=== PATIENT | female | born 1980 | race Caucasian/White ===

== ENCOUNTER 2017-08-19 11:32 | Inpatient (IN) ==
--- OUTSIDE RECORDS SUMMARY | 2017-08-29 05:31 | External Medical Summary | Continuity of Care Document ---
:1980 Author Organization [facility] Address [address] [place], [place] [id number] Phone Support Name Relationship Address Phone Glenn Dailey spouse [address] [phone] [place] [address] Allergies, Adverse Reactions, Alerts Substance Reaction Severity Status No Known Drug Allergies Unknown Active Medications Medication Instructions Dosage Effective Dates Status Comments (start - stop) Tylenol Extra take 2 tablet by 1000 MG - Active Strength 500 mg oral route every 6 tablet hours as needed ranitidine 150 mg take 1 tablet by 150 MG - Active tablet ORAL route every day Plus take 1 tablet by Not Available - Active (calcium oral route every carbonate) 27 mg day iron-1 mg tablet ferrous sulfate take 1 tablet by 325 MG - Active 325 mg (65 mg ORAL route every iron) tablet day Problems Condition Effective Dates (start - stop) Clinical Status Previous Low Transverse - 29 weeks gestation of - Nicotine dependence, cigarettes, uncomplicated Hirsutism 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 Supervision of elderly multigravida, - first trimester Previous Low Transverse - Encntr screen for infections w sexl - mode of transmiss Encounter for screening for oth - infec/parastc diseases Encounter for screening of - mother 9 weeks gestation of - Encounter for suprvsn of normal - , first trimester Morbid (severe) obesity due to excess calories Nicotine dependence, cigarettes, uncomplicated Hirsutism Encounter for removal of intrauterine - contraceptive device Encounter for oth general cnsl and advice on procreation 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 Body mass index (BMI) 40.0-44.9, adult Morbid (severe) obesity due to excess - calories Supervision of elderly multigravida, - first trimester 13 weeks gestation of - Supervision of elderly multigravida, - second trimester Previous Low Transverse - 17 weeks gestation of - Obesity complicating , second - trimester Previous Low Transverse - Supervision of elderly multigravida, - second trimester 19 weeks gestation of - Supervision of elderly multigravida, - second trimester 23 weeks gestation of - Previous Low Transverse - Supervision of elderly multigravida, - second trimester 26 weeks gestation of - Matern care for oth or susp poor fetl - grth, third tri, unsp Supervision of elderly multigravida, - third trimester 29 weeks gestation of - Matern care for oth or susp poor fetl - [facility], third tri, unsp 31 weeks gestation of - Encounter for screening for lipoid - disorders Encounter for screening for oth - suspected endocrine disorder Other senior living (current) drug therapy 19 weeks gestation of - Encounter for suprvsn of normal - , second trimester IUD Surveillance - Active Procedures Procedure Date OB Visit No Charge Results Test Name Date and Time Measure Units Reference Range Abnormal Flag Comments Unknown Advance Directives Directive Yes / No Effective Date File Name Unknown Encounters Encounter Practice Location Reason(s) Diagnoses Date Provider Care Team Description For Visit Members Bere Yepez Matern care for Vizcaino Referring In Womens oth or susp poor 1-201 Patricia. Provider: Health PA, fetl gr, third 7 700 Patriciainder Reyesb [address] tri, unsp31 weeks Medical K, 700 1522, gestation of [facility] Tina, , [facility] [address] MURRAY, 120, Taran 120, [id number], [place], [place], [place], tel: [phone]. , [place]. tel: tel: [phone] Bere Yepez Previous Low Sep-0 Vizcaino Referring In Womens Transverse - Patricia. Provider: Elier BACK, [id number] weeks 7 700 Patricia Vizcaino PO Box gestation of [facility], 700 1522, [facility] Dr Tina, [facility] Dr MURRAY, 120, Taran 120, , [place], [place], tel: [phone]. , [place]. tel: tel: [phone] Bere Yepez Matern care for Sep-0 Vizcaino Referring In Womens Ultrasound oth or susp poor - Patricia. Provider: Elier BACK, fetl grth, third 7 700 Patricia Vizcaino PO Box tri, [facility], 700 1522, unspSupervision [facility], of elderly , [facility] Dr MURRAY, multigravida, 120, Taran 120, [id number], third [id number] [place], [place] weeks gestation [place], [place], tel: of [phone]. , [place]. tel: tel: [phone] Bere Yepez Aug-1 Vizcaino In Womens 7- Patricia. Elier BACK, 7 700 [address], [address] Tina, [facility] T[place], 120, [id number], [place], [place], tel: [phone] , [place]. tel: [phone] Bere Yepez Previous Low Aug-1 Vizcaino Referring In Womens Transverse 6- Patricia. Provider: Elier BACK, C-SectionSupervis 7 700 Patricia Vizcaino PO Box ion of elderly [facility], 700 1522, multigravida, Shorter Adiel Wilder, second , [facility] Dr MURRAY, [id number] weeks 120, Taran 120, , gestation of [place], [place], [place], tel:[phone]. , [place]. tel: tel: [phone] Bere Yepez Supervision of Apr- Vizcaino Referring In Womens elderly 6-201 Patricia. Provider: Elier BACK, multigravida, 7 700 Patricia Vizcaino PO Box second [facility], 700 1522, [id number] [facility] of Dr, [facility] Dr MURRAY, 120, Taran 120, , [place], [place], [place], tel:[phone]. , [place]. tel: tel: [phone] Bere Yepez 19 weeks Mar- Vizcaino Referring In Womens gestation of 8-201 Patricia. Provider: Elier BACK, pregnancyEncounte 7 700 Patricia Vizcaino PO Box r for suprvsn of [facility], 700 1522, normal , [facility], second trimester Dr, [facility] Dr MURRAY, 120, Taran 120, , [place], [place], [place], tel:[phone]. , [place]. tel: tel: [phone] Bere Yepez Obesity Mar- Vizcaino Referring In Womens Ultrasound complicating 8-201 Patricia. Provider: Elier BACK, , second 7 700 Patricia Vizcaino PO Box trimesterPrevious Medical , 700 1522, Low Transverse [facility], C-SectionSupervis , [facility] Dr MURRAY, ion of elderly 120, Taran 120, , multigravida, [place], [place] second [place] MURRAY, tel: [id number] weeks [phone]. gestation of , [place]. tel: tel: [phone] Bere Yepez Supervision of Mar- Vizcaino Referring In Womens elderly 3-201 Patricia. Provider: Elier BACK, multigravida, 7 700 Patricia Vizcaino PO Box second [facility], 700 1522, trimesterPrevious [facility] Low Transverse Dr, [facility] Dr MURRAY, [id number] weeks 120, Taran 120, [id number], gestation of [place], [place] MURRAY, tel: [phone]. , [place]. tel: tel: [phone] Bere Yepez Morbid (severe) February- Vizcaino Referring In Womens obesity due to 6-201 Patricia. Provider: Elier BACK, excess 7 700 Patricia Vizcaino PO Box caloriesSupervisi [facility], 700 1522, on of elderly [facility], multigravida, , [facility] Dr MURRAY, first [id number] 120, Taran 120, , weeks gestation [place]o [place], [place] of [place] MURRAY, tel: [phone]. , [place]. tel: tel: [phone] [facility] Supervision of Jan-2 Vizcaino Referring In Womens elderly 0-201 Patricia. Provider: Elier BACK, jessicagravida, 7 700 Patricia Vizcaino PO Box [facility], 700 1522, trimesterPrevious [facility], Low Transverse , [facility] Dr MURRAY, C-SectionEncntr 120, Taran 120, , screen for [place], [place] infections w sexl [place] MURRAY, tel: mode of [phone]. [facility] [place]. tel: r for screening tel: [phone] for oth [phone] infec/parastc diseasesEncounter for screening of mother9 weeks gestation of pregnancyEnc[facility] r for suprvsn of normal , first trimester [facility] Encounter for Mar-0 Vizcaino Referring In Womens screening for 9-201 Patricia. Provider: Elier BACK, lipoid 7 700 Patricia Vizcaino PO Box [facility], r for screening [facility], for oth suspected , [facility] Dr MURRAY, endocrine 120, Taran 120, , disorderOther [place], [place] [employer] [place] MURRAY, tel: (current) drug [phone]. therapy , [place]. tel: tel: [phone] [facility] Nicotine Nov- Vizcaino Referring In Womens dependence, Patricia. Provider: Elier BACK, lonnie, 7 700 Patricia Vizcaino PO Box uncomplicatedHirs Medical K, 700 1522, utismEncntr for [facility], infection control coordinator exam , [facility] Center Dr MURRAY, (general) 120, Taran 120, , (routine) w [place], abnormal findings [place], tel: [phone]. , [place]. tel: tel: [phone] [facility] Morbid (severe) Vizcaino Referring In Womens obesity due to Patricia. Provider: Elier BACK, excess 5 700 Patricia Vizcaino PO Box caloriesNicotine Medical K, 700 1522, dependence, Center Medical Tina, lonnie, , [facility] Center Dr MURRAY, uncomplicatedHisendy 120, Taran 120, , utismEncounter [place]o [place], for removal of [place], [place], tel: intrauterine [phone]. contraceptive , [place]. tel: deviceEncounter tel: [phone] for oth general [phone] cnsl and advice on procreation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Body mass index (BMI) 40.0-44.9, adult [facility] Vizcaino In Womens Patricia. Health PA, 3 700 [address] Medical [address], [address] Tina, Taran [place], 120, , [place], [place], tel: [phone] , [place]. tel: [phone] Family History Family Member Diagnosis Age At Onset No family history of Kidney Problems Paternal Grandmother Diabetes mellitus Maternal Grandmother Cardiovascular Disease No family history of Epilepsy No family history of Osteoporosis Sister Diabetes mellitus No family history of Uterine Cancer No family history of Hypertension No family history of Ovarian Cancer Maternal Grandmother Stroke Father Diabetes mellitus No family history of Lung Disease Maternal Grandmother Cancer, colon 70 No family history of Thyroid Disorder No family history of Breast Cancer Immunizations Vaccine Date Status Comments Tdap completed Source: New Immunization Record Payers Payer name Insurance type Covered democrat ID Authorization(s) BCBS [facility] [id number] [employer] [place] [employer] - Medicaid MC [id number] [facility] [id number] Medicaid BCBS Out Of State [id number] BCBS [facility] [id number] [employer] [place] [employer] - Medicaid MC [id number] Social History Type Description Quantity Date Captured Alcohol Use Details No Caffeine Use Details Unknown Tobacco Use Status Smoking Status Current every day smoker Vital Signs Date / Height Weight BMI Pulse Blood Temperature Respiratory Body Head BMI Time: Rate Pressure Rate Surface Circumference percentile Area 289.90 42.1 -2016 lbs 9 9:40 kg/m AM eter (2) 289.90 42.1 124/73 -2017 lbs 9 mm[Hg] 9:41 kg/m AM eter (2) Chief Complaint And Reason For Visit Unknown Chief Complaint And Reason For Visit Reason For Referral Reason For Referral Unknown Plan Of Care Date Type Action Status Goal Tobacco cessation counseling completed Goal Tobacco cessation counseling completed Goal Tobacco cessation counseling completed Appointment Heidi Dailey BOOKED Appointment Heidi Dailey BOOKED Appointment Heiid Dailey - [facility] - RC/S, PPTL BOOKED Future Order: Lab Order Pap Smear With HPV Reflex If Ordered ASCUS ([id number]) Future Order: Radiology Order OB Detailed Complete Ultrasound Ordered ([id number]) Future Order: Radiology Order Ultrasound OB Follow-up ([id number]) Ordered Date Type Problem Goal Intervention Status Start Date Unknown. History Of Present Illness Encounter Date Complaint History Of Present Illness This patient has no known history of present illness Functional Status Encounter Date Functional Assessment Cognitive Assessment Unknown Medications Administered Medication Instructions Dosage Effective Dates (start - stop) Status Comments Drug Treatment Unknown Instructions Date Instruction Additional Information family planning / tubal sterilization gestational glucose lab screening HIV and other routine tests risk factors identified by history anticipated course of care nutrition and weight gain counseling, special diet toxoplasmosis precautions (cats / raw meat) sexual activity exercise indications for ultrasound influenza vaccine environmental / work hazards travel tobacco (ask, advise, assess, assist and arrange) use of any medications (including supplements, vitamins, herbs, OTC drugs) smoking counseling domestic violence seat belt use childbirth classes / hospital facilities hospital registration genetic testing risks Zika virus assessment & precautions
--- OUTSIDE RECORDS SUMMARY | 2017-08-29 05:32 | External Medical Summary | Continuity of Care Document ---
:1980 Author Organization [facility] Address [address] [place], [place] [id number] Phone Support Name Relationship Address Phone Glenn Dailey spouse [address] [phone] [place] [address] Allergies, Adverse Reactions, Alerts Substance Reaction Severity Status No Known Drug Allergies Unknown Active Medications Medication Instructions Dosage Effective Dates Status Comments (start - stop) Tylenol Extra take 2 tablet by 1000 MG - Active Strength 500 mg oral route every 6 tablet hours as needed ranitidine 150 mg take 1 tablet by 150 MG - Active tablet ORAL route every day FISH OIL 500-100 - Active mg ORAL CAPSULE Plus take 1 tablet by Not Available - Active (calcium oral route every carbonate) 27 mg day iron-1 mg tablet Problems Condition Effective Dates (start - stop) Clinical Status Supervision of elderly multigravida, - second trimester 23 weeks gestation of - Nicotine dependence, cigarettes, uncomplicated Hirsutism 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 Supervision of elderly multigravida, - first trimester Previous Low Transverse - Encntr screen for infections w sexl - mode of transmiss Encounter for screening for oth - infec/parastc diseases Encounter for suprvsn of normal - , first trimester Encounter for screening of - mother 9 weeks gestation of - Morbid (severe) obesity due to excess calories Nicotine dependence, cigarettes, uncomplicated Hirsutism 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 Encounter for removal of intrauterine - contraceptive device Encounter for oth general cnsl and advice on procreation Body mass index (BMI) 40.0-44.9, adult Morbid (severe) obesity due to excess - calories Supervision of elderly multigravida, - first trimester 13 weeks gestation of - Supervision of elderly multigravida, - second trimester Previous Low Transverse - 17 weeks gestation of - Supervision of elderly multigravida, - second trimester Previous Low Transverse - Obesity complicating , second - trimester 19 weeks gestation of - Encounter for screening for lipoid - disorders Other correction (current) drug therapy Encounter for screening for oth - suspected endocrine disorder 19 weeks gestation of - Encounter for [...] Team Description For Visit Members Bere Yepez Supervision of Vizcaino Referring In Womens elderly 6-201 Patricia. Provider: kamala Guillermoavineeraj, 7 700 Patricia Vizcaino PO Box second Medical , 700 1522, [id number] weeks [place] Adiel Wilder, gestation of Dr, [facility] Dr MURRAY, 120, Taran 120, , [place] Ye[place], [facility] [place], tel: [phone] , [place]. tel: tel: [phone] Bere Yepez 19 weeks Vizcaino Referring In Womens gestation of 8-201 Patricia. Provider: Elier BACK pregnancyEncounte 7 700 Patricia Vizcaino PO Box r for suprvsn of Medical K, 700 1522, normal , Hamilton Adiel Wilder, second trimester , [facility] Dr MURRAY, 120, Taran 120, [id number], [place], [place] MURRAY, tel: [phone]. , [place]. tel: tel: [phone] Bere Yepez Supervision of [place]-2 Vizcaino Referring In Womens Ultrasound elderly 8-201 Patricia. Provider: Elier BACK, jessicagravineeraj, 7 700 Patricia Vizcaino PO Box [facility], 700 1522, trimesterPrevious [facility] Tina Low Transverse , [facility] Dr MURRAY, C-SectionObesity 120, Taran 120, [id number], complicating [place], [place] , second [place] MURRAY, tel: weeks [phone]. gestation of , [place]. tel: tel: [phone] Bere Yepez Supervision of [place]-1 Vizcaino Referring In Womens elderly 3-201 Patricia. Provider: jessica Guillermogravineeraj, 7 700 Patricia Vizcaino PO Box [facility] [place], 700 1522, trimesterPrevious [facility] [place], Low Transverse , [facility] Dr MURRAY, [id number] weeks 120, Taran 120, , gestation of [place], [place], tel: [phone]. , [place]. tel: tel: [phone] Bere Yepez Morbid (severe) May- Vizcaino Referring In Womens obesity due to 6-201 Patricia. Provider: Elier BACK, excess 7 700 Patricia Vizcaino PO Box [facility], 700 1522, [facility]i, , [facility] Dr MURRAY, first [id number] 120, Taran 120, [id number], weeks gestation [place]o [place], [place] of [place], tel: [phone]. , [place]. tel: tel: [phone] Bere Yepez Supervision of Apr-2 Vizcaino Referring In Womens elderly 0-201 Patricia. Provider: jessica Guillermogravineeraj, 7 700 Patricia Vizcaino PO Box [facility], 700 1522, trimesterPrevious [facility], Low Transverse , [facility] Dr MURRAY, C-SectionEncntr 120, Taran 120, , screen for [place], [place] infections w sexl [place] MURRAY, tel: mode of [phone]. transmissEncounte , [place]. tel: r for screening tel: [phone] for oth [phone] infec/parastc diseasesEncounter for suprvsn of normal , first trimesterEncounte r for screening of mother9 weeks gestation of [facility] Encounter for Dec-0 Vizcaino Referring In Womens screening for 9-201 Patricia. Provider: Health PA, lipoid Patricia Vizcaino PO Box disordersOther [facility], 152, buttermaker helper [facility], (current) drug , [facility] Dr MURRAY, therapyEncounter 120, Taran 120, , for screening for [place] Ye[place], [place] oth suspected [place] MURRAY, tel: endocrine [phone]. disorder , [place]. tel: tel: [phone] Bere Yepez Nicotine Nov- Vizcaino Referring In Womens dependence, - Patricia. Provider: Health NAZANIN, cigarettes, Patricia Vizcaino PO Box [facility]plicated[facility]irs [facility], 700 152, utismEncntr for [facility], gynecological assistant exam , [facility] Dr MURRAY, (general) 120, Taran 120, , (routine) w [place], [place] abnormal findings [place] MURRAY, tel: [phone]. , [place]. tel: tel: [phone] Bere Yepez Morbid (severe) Sep- Vizcaino Referring In Womens obesity due to 5-201 Patricia. Provider: Health NAZANIN, excess Patricia Vizcaino PO Box caloriesNicotine [facility], 700 1522, dependence, [facility], cigarettes, , [facility] Dr MURRAY, uncomplicatedHirs 120, Taran 120, , utismEncntr for [place], [place] gynecological assistant exam [place], tel: (general) [phone]. (routine) w , [place]. tel: abnormal tel: [phone] findingsEncounter [phone] for removal of intrauterine contraceptive deviceEncounter for oth general cnsl and advice on procreationBody mass index (BMI) 40.0-44.9, adult [facility] Vizcaino In Womens 8-201 [facility], 3 700 PO [place] [facility] [address], [address] Tina, [facility], 120, [id number], [facility] [place], tel: [phone] , [place]. tel: [phone] Family History Family Member Diagnosis Age At [...] Breast Cancer Immunizations Vaccine Date Status Comments Unknown Payers Payer name Insurance type Covered libertarian ID Authorization(s) [facility] [id number] [facility] [id number] Medicaid BCBS [facility] [id number] Social History Type Description Quantity Date Captured Alcohol Use Details No Caffeine Use Details Unknown Tobacco Use Status Smoking Status Current every day smoker Vital Signs Date / Height Weight BMI Pulse Blood Temperature Respiratory Body Head BMI Time: Rate Pressure Rate Surface Circumference percentile Area 291.30 42.4 136/ lbs 0 mm[Hg] 1:16 kg/m PM eter (2) Chief Complaint And Reason For Visit Unknown Chief Complaint And Reason For Visit Reason For Referral Reason For Referral Unknown Plan Of Care Date Type Action Status Goal Tobacco cessation counseling completed Goal Tobacco cessation counseling completed Goal Tobacco cessation counseling completed Appointment Heidi Dailey KEPT Future Order: Lab Order Pap Smear With HPV Reflex If Ordered ASCUS ([id number]) Future Order: Radiology Order OB Detailed Complete Ultrasound Ordered ([id number]) Date Type Problem Goal Intervention Status Start Date Unknown. History Of Present Illness Encounter Date Complaint History Of Present Illness This patient has no known history of present illness Functional Status Encounter Date Functional Assessment Cognitive Assessment Unknown Medications Administered Medication Instructions Dosage Effective Dates (start - stop) Status Comments Drug Treatment Unknown Instructions Date Instruction Additional Information HIV and other routine tests risk factors [...]
--- OUTSIDE RECORDS SUMMARY | 2017-08-29 05:32 | External Medical Summary | Continuity of Care Document ---
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 Supervision of elderly multigravida, - first trimester Previous Low Transverse - Encntr screen for infections w sexl - mode of transmiss Encounter for screening for oth - infec/parastc diseases Encounter for suprvsn of normal - , first trimester Encounter for screening of - mother 9 weeks gestation of - Morbid (severe) obesity due to excess - calories Supervision of elderly multigravida, - third trimester Previous Low Transverse - 33 weeks gestation of - Morbid (severe) obesity due to excess calories Nicotine dependence, cigarettes, uncomplicated Hirsutism 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 Encounter [...] - second trimester Previous Low Transverse - 26 weeks gestation of - Supervision of elderly multigravida, - second trimester Previous Low Transverse - Obesity complicating , second - trimester 19 weeks gestation of - Supervision of elderly multigravida, - second trimester 23 weeks gestation of - Supervision of elderly multigravida, - third trimester Previous Low Transverse - Encounter For Screening For - Streptococcus B 35 weeks gestation of - Supervision of elderly multigravida, - third trimester Matern care for oth or susp poor fetl - grth, third tri, unsp 29 weeks gestation of - Previous Low Transverse - 29 weeks gestation of - Matern care for oth or susp poor fetl - grth, third tri, unsp 31 weeks gestation of - Encounter for screening for lipoid - disorders Encounter for screening for oth - suspected endocrine disorder 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 Provider: falguni Guillermo, 7 700 Patricia Vizcaino PO Box [facility], 700 1522, [facility] [place] [facility] [place]verse , [facility] Dr MURRAY, C-SectionEncounte 120, Tar[place] 120, [id number], r For [place], Screening [place], tel:2 Streptococcus B35 [id number]. 517608 weeks gestation , [place]. tel: of tel: [phone] Bere Yepez Morbid (severe) Oct-0 Vizcaino Referring In Womens obesity due to Patricia. Provider: lu Guillermo 7 700 Patricia Vizcaino PO Box [facility], 700 1522, on of [facility] falguni Wilder, , [facility] Dr MURRAY, third 120, [place] 120, [id number], trimesterPrevious [place], [place], tel: [id number] weeks [id number]. [id number] gestation of , [place]. tel: tel: [phone] Bere Yepez Supervision of Jul-0 Vizcaino Referring In Womens Ultrasound elderly - Patricia. Provider: falguni Guillermo, 7 700 Patricia Vizcaino PO Box [facility], 700 1522, [facility] Munir Palafox Transverse , [facility] Dr MURRAY, C-SectionMatern 120, Taran 120, [id number], care for oth or Lucho Yepez, susp poor fetl TREVOR MURRAY, tel: grth, third tri, [phone] [id number]. unsp33 weeks , [place]. tel: gestation of tel:[phone] Bere Yepez Matern care for Sep-2 Vizcaino Referring In Womens oth or susp poor - Patricia. Provider: Elier BACK, fetl grth, third 7 700 Patricia Vizcaino PO Box tri, unsp31 weeks Medical , 700 1522, gestation of [facility], , [facility] Dr MURRAY, 120, Taran 120, , Lucho Yepez, [place], [place], tel:[phone]. , [place]. tel: tel: [phone] Bere Yepez Previous Low Sep-0 Vizcaino Referring In Womens Transverse - Patricia. Provider: Elier BACK, C-[id number] weeks 7 700 Patricia Vizcaino PO Box gestation of Medical , 700 1522, [address], [facility] Dr MURRAY, 120, Taran 120, , Lucho Yepez, [place], T[place], tel:[phone]. , [place]. tel: tel: [phone] Bere Yepez Supervision of Sep-0 Vizcaino Referring In Womens Ultrasound elderly - Patricia. Provider: Elier BACK, multigravida, 7 700 Patricia Vizcaino PO Box third Medical , 700 1522, trimesterMatern [facility], care for oth or , [facility] Dr MURRAY, susp poor fetl 120, Taran 120, [id number], grth, third tri, Lucho Yepez, unsp29 weeks [place]OR MURRAY, tel: gestation of [phone]. , [place]. tel: tel: [phone] Bere Yepez Aug-1 Vizcaino In Womens - Patricia. Elier BACK, 7 700 PO Box Medical [address] [place] [address] Tina, Taran MURRAY, 120, , [place], tel: [phone] , [place]. tel: [phone] Bere Yepez Supervision of Vizcaino Referring In Womens elderly 6- Patricia. Provider: Elier BACK, multigravida, 7 700 Patricia Vizcaino PO Box second Medical K, 700 1522, trimesterPrevious [facility] [place], Low Transverse , [facility] Dr MURRAY, C-Eflgnrp63 weeks 120, Taran 120, , gestation of [place], [place], [place], tel:[phone]. , [place]. tel: tel: [phone] Bere Yepez Supervision of Vizcaino Referring In Womens elderly 6- Patricia. Provider: Elier BACK, multigravineeraj, 7 700 Patricia Vizcaino PO Box [facility] Medical , 700 1522, [id number] weeks [facility], gestation of Dr, [facility] Dr MURRAY, 120, [place]an 120, , [place] Yepez, [place], [place], tel: [phone]. , [place]. tel: tel: [phone] Bere Yepez Encounter for Denton-2 Vizcaino Referring In Womens suprvsn of normal 8- Patricia. Provider: Elier BACK, , second 7 700 Patricia Vizcaino PO Box [id number] weeks Medical , 700 1522, gestation of [facility], , [facility] Dr MURRAY, 120, Taran 120, , Lucho Yepez, [place], [place], tel: [phone]. , [place]. tel: tel: [phone] Yepez Supervision of Mar- Vizcaino Referring In Womens Ultrasound elderly 8- Patricia. Provider: Elier BACK, multigravida, 7 700 Patricia Vizcaino PO Box second Medical , 700 1522, trimesterPrevious [facility] [facility], Low Transverse , [facility] Dr MURRAY, C-SectionObesity 120, Taran 120, , complicating Lucho Yepez, , second [place]RE[place]OR MURRAY, tel: [id number] weeks [phone]. gestation of , [place]. tel: tel: [phone] Bere Yepez Supervision of Denton- Vizcaino Referring In Womens elderly 3-201 Patricia. Provider: Elier BACK, multigravida, 7 700 Patricia Vizcaino PO Box [facility], 700 1522, trimesterPrevious [facility] Transverse , [facility] Dr MURRAY, C-[id number] weeks 120, Taran 120, , gestation of [place]ucho Yepez, [place] TREVOR TREVOR, tel: [phone]. , [place]. tel: tel: [phone] Bere Yepez Morbid (severe) February- Vizcaino Referring In Womens obesity due to 6-201 Patricia. Provider: Elier BACK, excess 7 700 Patricia Vizcaino PO Box [facility], 700 1522, on of [facility], kamalaavineeraj, , [facility] Dr MURRAY, first [id number] 120, Taran 120, [id number], weeks gestation Lucho Yepez, [place] of [place] T[place], tel: [phone]. , [place]. tel: tel: [phone] Bere Yepez Supervision of Apr-2 Vizcaino Referring In Womens elderly 0-201 Patricia. Provider: Elier BACK, multigravida, 7 700 Patricia Vizcaino PO Box [facility], 700 1522, trimesterPrevious [facility] Munir Wilder Transverse , [facility] Center Dr MURRAY, C-SectionEncntr 120, Taran 120, , screen for Lucho Yepez, infections w sexl TREVOR MURRAY, tel: mode of [phone]. transmissEncounte , [place]. tel: r for screening tel: [phone] for oth [phone] infec/parastc diseasesEncounter for suprvsn of normal , first trimesterEncounte r for screening of mother9 weeks gestation of [facility] Encounter for Dec-0 Vizcaino Referring In Womens screening for - Patricia. Provider: Health NAZANIN, lipoid 7 700 Patricia Vizcaino PO Box disordersEncounte Medical , 700 1522, r for screening [facility], for oth suspected Dr, [facility] Center Dr MURRAY, endocrine 120, Taran 120, , disorderOther [place] Ye[place], exterminator [place], tel: (current) drug [phone]. therapy , [place]. tel: tel: [phone] [facility] Nicotine Nov- Vizcaino Referring In Womens dependence, Patricia. Provider: Elier BACK, cigarettes, 7 700 Patricia Vizcaino PO Box [facility]Hirs [facility], 700 1522, utismEncntr for [facility], internet architect exam , [facility] Dr MURRAY, (general) 120, Taran 120, , (routine) w Lucho Yepez, abnormal findings TREVOR, TREVOR, tel: [phone]. , [place]. tel: tel: [phone] [facility] Morbid (severe) Sep- Vizcaino Referring In Womens obesity due to - Patricia. Provider: Elier BACK, excess 5 700 Patricia Vizcaino PO Box caloriesNicotine Medical , 700 1522, dependence, [facility], Dr lonnie, [facility] Dr MURRAY, uncomplicatedHirs 120, Taran 120, , utismEncntr Lucho Vyas, internet architect exam TREVOR, TRE[place], tel: (general) [phone]. (routine) w , [place]. tel: abnormal tel: [phone] findingsEncounter [id number] for removal of intrauterine contraceptive deviceEncounter for oth general cnsl and advice on procreationBody mass index (BMI) 40.0-44.9, adult [facility] May- Vizcaino In Womens 8-201 Patricia. Elier BACK, 3 700 PO [address] Medical [address], [place] [address] Tina, [place], 120, , [facility] [place], tel:[phone] , . tel: [phone] Family History Family Member Diagnosis Age At [...] Record Payers Payer name Insurance type Covered green party ID Authorization(s) [facility] [id number] [employer] [place] [employer] - Medicaid MC [id number] [facility] [id number] Medicaid BC Out Of State [id number] [facility] [id number] [employer] [place] [employer] - Medicaid [place] [id number] Social History Type Description Quantity Date Captured Unknown Vital Signs Date / Height Weight BMI Pulse Blood Temperature Respiratory Body Head BMI Time: Rate Pressure Rate Surface Circumference percentile Area Unknown Chief Complaint And Reason For Visit Unknown Chief Complaint And Reason For Visit Reason For Referral Reason For Referral Unknown Plan Of Care Date Type Action Status Goal Tobacco cessation counseling completed Goal Tobacco cessation counseling completed Goal Tobacco cessation counseling completed Appointment Heidi Dailey KEPT App[place]ment Heidi Dailey [place] [facility] [place] Future Order: Radiology Order Ultrasound OB Follow-up ([id number]) Ordered Future Order: Lab Order Pap Smear With HPV Reflex If Ordered ASCUS ([id number]) Future Order: Radiology Order OB Detailed Complete Ultrasound Ordered ([id number]) Future Order: Radiology Order Ultrasound OB Follow-up ([id number]) Ordered Date Type Problem Goal Intervention Status Start Date Unknown. History Of Present Illness Encounter Date Complaint History Of Present Illness This patient has no known history of present illness Functional Status Encounter Date Functional Assessment Cognitive Assessment Unknown Medications Administered Medication Instructions Dosage Effective Dates (start - stop) Status Comments Drug Treatment Unknown Instructions Date Instruction Additional Information labor signs group B strep screening family planning / tubal sterilization gestational glucose [...]
--- OUTSIDE RECORDS SUMMARY | 2017-08-29 05:32 | External Medical Summary | Continuity of Care Document ---
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 Supervision [...] Nicotine dependence, cigarettes, uncomplicated Hirsutism 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 Encounter [...] tri, unsp 33 weeks gestation of - Supervision of elderly [...] for oth - suspected endocrine disorder 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 Provider: falguni Guillermo, 7 700 Patricia Vizcaino PO Box [facility], 700 1522, [facility] Munir Wilder Transverse , [facility] Dr MURRAY, C-SectionEncounte 120, Taran 120, , r For [place] Yepez, Screening [place], tel: Streptococcus B35 [phone]. weeks gestation , [place]. tel: of tel: [phone] Bere Yepez Morbid (severe) Jul- Vizcaino Referring In Womens obesity due to Patricia. Provider: lu Guillermo 7 700 Patricia Vizcaino PO Box [facility], 700 1522, on of [facility], Dr falguni, [facility] Dr MURRAY, third 120, [place] 120, [id number], trimesterPrevious [place] Yepez, [place] Low [place]verse [place], [place], tel: C-[id number] weeks [phone]. [id number] gestation of , [place]. tel: tel: [phone] Bere Yepez Supervision of Vizcaino Referring In Womens Ultrasound elderly - Patricia. Provider: falguni Guillermo, 7 700 Patricia Vizcaino PO Box [facility], 700 1522, [facility] Munir Palafox Transverse , [facility] Dr MURRAY, C-SectionMatern 120, Taran 120, [id number], care for oth or [place]ucho Yepez, [place] susp poor fetl TREVOR, TREVOR, tel: grth, third tri, [phone]. unsp33 weeks , [place]. tel: gestation of tel: [phone] Bere Yepez Matern care for Sep-2 Vizcaino Referring In Womens oth or susp poor -201 Patricia. Provider: Elier BACK, fetl grth, third 7 700 Patricia Vizcaino PO Box tri, unsp31 weeks [facility], 700 1522, gestation of [facility], Dr, [facility] Dr MURRAY, 120, Tar[place] 120, [id number], [place] Yepez, [place], tel:[phone]. , [place]. tel: tel: [phone] Bere Yepez Previous Low Sep-0 Vizcaino Referring In Womens Transverse - Patricia. Provider: Elier BACK, C-[id number] weeks 7 700 Patricia Vizcaino PO Box gestation of Medical , 700 1522, [place] [address], [facility] Dr MURRAY, 120, [place]an 120, [id number], [place] Yepez, [place], [place], tel:[phone]. , [place]. tel: tel: [phone] Bere Yepez Supervision of Sep-0 Vizcaino Referring In Womens Ultrasound elderly - Patricia. Provider: Elier BACK, multigravida, 7 700 Patricia Vizcaino PO Box third Medical , 700 1522, trimesterMatern [facility], care for oth or Dr, [facility] Dr MURRAY, susp poor fetl 120, Taran 120, [id number], grth, third tri, Lucho Yepez, unsp29 weeks T[place]OR MURRAY, tel: gestation of [phone]. , [place]. tel: tel: [phone] Bere Yepez Aug-1 Vizcaino In Womens 7- Patricia. Elier BACK, 7 700 PO Box Medical [address], [place] [address] Tina, Taran [place], 120, [id number], [place], [place], tel: [phone] , [place]. tel: [phone] Bere Yepez Supervision of Vizcaino Referring In Womens elderly 6- Patricia. Provider: Elier BACK, multigravida, 7 700 Patricia Vizcaino PO Box second Medical K, 700 1522, trimesterPrevious [facility] [place], Low Transverse , [facility] Dr MURRAY, C-Vlvofum03 weeks 120, Taran 120, , gestation of Lucho Yepez, [place], T[place], tel:[phone]. , [place]. tel: tel: [phone] Bere Yepez Supervision of Apr- Vizcaino Referring In Womens elderly 6- Patricia. Provider: Elier BACK, kamalaavineeraj, 7 700 Patricia Vizcaino PO Box [facility] Medical , 700 1522, [id number] weeks [facility] [place], gestation of , [facility] Dr MURRAY, 120, Taran 120, , Lucho Yepez, [place], [place], tel: [phone]. , [place]. tel: tel: [phone] Yepez Encounter for Denton-2 Vizcaino Referring In Womens suprvsn of normal 8- Patricia. Provider: Elier BACK, , second 7 700 Patricia Vizcaino PO Box [id number] weeks Medical , 700 1522, gestation of [facility] [place], , [facility] Dr MURRAY, 120, Taran 120, , Lucho Yepez, [place] MURRAY, tel: [phone]. , [place]. tel: tel: [phone] Bere Yepez Supervision of Denton-2 Vizcaino Referring In Womens Ultrasound elderly 8- Patricia. Provider: Elier BACK, jessicagravida, 7 700 Patricia Vizcaino PO Box second Medical K, 700 1522, trimesterPrevious [facility] [place], Low Transverse , [facility] Dr MURRAY, C-SectionObesity 120, Taran 120, , complicating [place]o Yepez, [place] , second [place]OR MURRAY, tel: [id number] weeks [phone]. gestation of , [place]. tel: tel: [phone] Bere Yepez Supervision of Denton- Vizcaino Referring In Womens elderly 3-201 Patricia. Provider: Elier BACK, multigravida, 7 700 Patricia Vizcaino PO Box [facility], 700 1522, trimesterPrevious [facility] [place], Low Transverse , [facility] Dr MURRAY, C-Iigfkcc11 weeks 120, Taran 120, , gestation of [place]ucho Yepez, [place] TREVOR, TREVOR, tel: [phone]. , [place]. tel: tel: [phone] Bere Yepez Morbid (severe) February- Vizcaino Referring In Womens obesity due to 6-201 Patricia. Provider: Elier BACK, excess 7 700 Patricia Vizcaino PO Box [facility], 700 1522, on of [facility], kamalaavineeraj, , [facility] Dr MURRAY, first [id number] 120, Atran 120, [id number], weeks gestation Lucho Yepez, [place] of [place] T[place], tel: [phone]. , [place]. tel: tel: [phone] Bere Yepez Supervision of Apr-2 Vizcaino Referring In Womens elderly 0-201 Patricia. Provider: Elier BACK, multigravida, 7 700 Patricia Vizcaino PO Box [facility], 700 1522, trimesterPrevious [facility] Tina Low Transverse , [facility] Dr MURRAY, C-SectionEncntr 120, Taran 120, , screen for Lucho Yepez, infections w sexl [place]OR MURRAY, tel: mode of [phone]. transmissEncounte , [place]. tel: r for screening tel: [phone] for oth [phone] infec/parastc diseasesEncounter for suprvsn of normal , first trimesterEncounte r for screening of mother9 weeks gestation of Bere Yepez Encounter for Dec- Vizcaino Referring In Womens screening for 9-201 Patricia. 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 therapy , [place]. tel: tel: [phone] [facility] Nicotine Nov- Vizcaino Referring In Womens dependence, - Patricia. Provider: Elier BACK cigarettes, 7 700 Patricia Vizcaino PO Box [facility], 700 1522, utismEncntr for [facility], coding and reimbursement specialist exam , [facility] Dr MURRAY, (general) 120, Taran 120, , (routine) w Lucho Yepez, abnormal findings TREVOR MURRAY, tel: [phone]. , [place]. tel: tel: [phone] [facility] Morbid (severe) Sep- Vizcaino Referring In Womens obesity due to - Patricia. 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 (routine) w , [place]. tel: abnormal tel: [phone] findingsEncounter [id number] for removal of intrauterine contraceptive deviceEncounter for oth general cnsl and advice on procreationBody mass index (BMI) 40.0-44.9, adult [facility] May- Vizcaino In Womens 8-201 Patricia. Elier BACK, 3 700 PO Box Medical [address], [place] [address] Tina, Taran [place], 120, , [facility], tel:[phone] , . tel:[phone] Family History Family Member Diagnosis Age At [...] Record Payers Payer name Insurance type Covered constitution party ID Authorization(s) [facility] [id number] [employer] [place] [employer] - Medicaid MC [id number] [facility] [id number] Medicaid BCBS Out Of State [id number] [facility] [id number] [employer] [place] [employer] - Medicaid MC [id number] Social History Type Description Quantity Date Captured Alcohol Use Details No Caffeine Use Details Unknown Tobacco Use Status Smoking Status Current every day smoker Vital Signs Date / Height Weight BMI Pulse Blood Temperature Respiratory Body Head BMI Time: Rate Pressure Rate Surface Circumference percentile Area 42.3 -2017 1 10:01 kg/m AM eter (2) 288.70 42.0 134/75 -2017 lbs 2 mm[Hg] 10:06 kg/m AM eter (2) Chief Complaint And Reason For Visit Unknown Chief Complaint And Reason For Visit Reason For Referral Reason For Referral Unknown Plan Of Care Date Type Action Status Goal Tobacco cessation counseling completed Goal Tobacco cessation counseling completed Goal Tobacco cessation counseling completed Appointment Heidi Dailey/Elaine, PPTL BOOKED Future Order: Lab Order Pap Smear With HPV Reflex If Ordered ASCUS (WPMPap1) Future Order: Radiology Order OB Detailed Complete Ultrasound Ordered ([id number]) Future Order: Radiology Order Ultrasound OB Follow-up ([id number]) Ordered Future Order: Radiology Order Ultrasound OB Follow-up ([id number]) Ordered Date Type Problem Goal Intervention Status [...]
--- OUTSIDE RECORDS SUMMARY | 2017-08-29 05:32 | External Medical Summary | Continuity of Care Document ---
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 Encounter [...] gestation of - Previous Low Transverse - 36 weeks gestation of - Previous Low Transverse - 38 weeks gestation of - Previous Low Transverse - 29 weeks gestation of - Matern care for oth or susp poor fetl - grth, third tri, unsp 31 weeks gestation of - Encounter for screening for lipoid - disorders Encounter for screening for oth - suspected endocrine disorder Other medical terminologist (current) drug therapy Encounter for suprvsn of normal - , second trimester 19 weeks gestation of - IUD Surveillance - Active Procedures Procedure Date OB Visit No Charge Results Test Name Date and Time Measure Units Reference Range Abnormal Flag Comments Panel Description: STREPTOCOCCUS, GROUP B CULTURE STREPTOCOCCUS, GROUP SEE NOTE STREPTOCOCCUS, GROUP B CULTURE B CULTURE 10:18:00 MICRO NUMBER: [id number] TEST STATUS: FINAL SPECIMEN SOURCE: VAGINAL/ANORECTAL SPECIMEN QUALITY: ADEQUATE RESULT: No group B Streptococcus isolatedREPORT COMMENT:FASTING:UNKNOWNTest performed at [facility] [id number] [place] [address]Abjkezag: DAVONTE BENITEZ DO,MPH Advance Directives Directive Yes / No Effective Date File Name Unknown Encounters Encounter Practice Location Reason(s) Diagnoses Date Provider Care Team Description For Visit Members [facility] Previous Low Aug-0 Vizcaino Referring In Womens Transverse 3-201 Patricia. Provider: Elier BACK, [id number] weeks 7 700 Patricia Vizcaino PO Box gestation of [place] [address] [address], [address], [facility] [address] [place]RAY, 120, [place] 120, [id number], Lucho [place], [place], [place], tel: [phone]. , [place]. tel: tel: [phone] [facility] Previous Low Oct-2 Vizcaino Referring In Womens Transverse 6-201 Patricia. Provider: Elier BACK, C-[id number] weeks 7 700 Patricia Vizcaino PO Box gestation of [facility], [address], [address], [facility] Dr [place]RAY, 120, Taran 120, [id number], Lucho Yepez, [place], [place], tel: [phone]. , . tel: tel: [phone] Bere Yepez Supervision of Oct-1 Vizcaino Referring In Womens elderly 9- Patricia. Provider: Elier BACK, jessicagravida, 7 700 Patricia Vizcaino PO Box [facility], 700 1522, trimesterPrevious [facility], Low Transverse Dr, [facility] Dr MURRAY, C-SectionEncounte 120, Taran 120, [id number], r For [place], [place] Screening [place], tel: Streptococcus B35 [phone]. weeks gestation , [place]. tel: of tel: [phone] Bere Yepez Morbid (severe) Oct-0 Vizcaino Referring In Womens obesity due to Patricia. Provider: Elier BACK, excess 7 700 Patricia Vizcaino PO Box caloriesSupervisi [facility], 700 1522, on of elderly [facility], falguni, , [facility] Dr [place], third 120, Taran 120, , trimesterPrevious [place], [place] Low [place]verse [place], tel: C-Siruatw24 weeks [phone]. gestation of , [place]. tel: tel: [phone] Bere Yepez Supervision of Oct-0 Vizcaino Referring In Womens Ultrasound elderly - Patricia. Provider: jessica Guillermogravida, 7 700 Patricia Vizcaino PO Box [facility], 700 1522, trimesterPrevious [facility] Ruby, Low Transverse , [facility] Dr MURRAY, C-SectionMatern 120, Taran 120, [id number], care for oth or [place], [place] susp poor fetl [place], tel: grth, third tri, [phone]. unsp33 weeks , [place]. tel: gestation of tel: [phone] Bere Yepez Matern care for Sep-2 Vizcaino Referring In Womens oth or susp poor -201 Patricia. Provider: Elier BACK, fetl grth, third 7 700 Patricia Vizcaino PO Box tri, unsp31 weeks Medical K, 700 1522, gestation of [facility] Ruby, Dr, [facility] Dr MURRAY, 120, Taran 120, , [place], [place], tel: [phone]. , [place]. tel: tel: [phone] Bere Yepez Previous Low Sep-0 Vizcaino Referring In Womens Transverse 7-201 Patricia. Provider: Elier BACK, [id number] weeks 7 700 Patricia Vizcaino PO Box gestation of Medical , 700 1522, Center [facility] Ruby, , [facility] Dr MURRAY, 120, Tar[place] 120, , [place], [place], tel: [phone]. , [place]. tel: tel: [phone] Bere Yepez Supervision of Sep-0 Vizcaino Referring In Womens Ultrasound elderly 7-201 Patricia. Provider: Elier BACK, multigravida, 7 700 Patricia Vizcaino PO Box third Medical , 700 1522, [facility], care for oth or , [facility] Dr [place], susp poor fetl 120, Taran 120, , grth, third tri, Lucho Yepez, unsp29 weeks [place]OR [place], tel: gestation of [phone]. , [place]. tel: tel: [phone] Bere Yepez Aug-1 Vizcaino In Womens 7-201 Patricia. Elier BACK, 7 700 PO Box Medical [address], [address] Tina, [facility] [place], 120, [id number], [place], [place], tel: [phone] , [place]. tel: [phone] Bere Yepez Supervision of Aug-1 Vizcaino Referring In Womens elderly 6-201 Patricia. Provider: Elier BACK, multigravida, 7 700 Patricia Vizcaino PO Box second Medical K, 700 1522, trimesterPrevious [facility] Ruby, Low Transverse , [facility] Dr M[place]RAY, C-[id number] weeks 120, Taran 120, , gestation of [place], [place], [place], tel: [phone]. , [place]. tel: tel: [phone] Bere Yepez Supervision of Rahat-2 Vizcaino Referring In Womens elderly 6-201 Patricia. Provider: jessica Guillermogravida, 7 700 Patricia Vizcaino PO Box second Medical , 700 1522, [id number] weeks [facility] Ruby, gestation of Dr, [facility] Dr MURRAY, 120, Taran 120, , Lucho Yepez, [place], [place], tel:[phone]. , [place]. tel: tel: [phone] Bere Yepez Encounter for Denton-2 Vizcaino Referring In Womens suprvsn of normal 8-201 Patricia. Provider: Elier BACK, , second 7 700 Patricia Vizcaino PO Box [id number] weeks Medical , 700 1522, gestation of [facility] Ruby, , [facility] Dr [place]RAY, 120, Taran 120, , L[place]o Ye[place], [place], tel:[phone]. , [place]. tel: tel: [phone] Bere Yepez Supervision of Mar-2 Vizcaino Referring In Womens Ultrasound elderly 8-201 Patricia. Provider: kamala Guillermoavineeraj, 7 700 Patricia Vizcaino PO Box second Medical , 700 1522, trimesterPrevious [place] [address], Low Transverse , [facility] Dr [place], C-SectionObesity 120, Taran 120, , complicating Lucho Yepez, , second [place]OR, [place], tel: [id number] weeks [phone]. gestation of , [place]. tel: tel: [phone] Bere Yepez Supervision of Denton-1 Vizcaino Referring In Womens elderly 3-201 Patricia. Provider: Elier BACK multigravida, 7 700 Patricia Vizcaino PO Box second Medical , 700 1522, trimesterPrevious [facility] Tina Low Transverse , [facility] Dr [place]RAY, C-[id number] weeks 120, Taran 120, , gestation of [place], [place], tel: [phone]. , [place]. tel: tel: [phone] Bere Yepez Morbid (severe) February- Vizcaino Referring In Womens obesity due to 6-201 Patricia. Provider: Elier BACK, excess 7 700 Patricia Vizcaino PO Box caloriesSupervisi [facility], 700 152, on of elderly [facility], waldo hospitalgravineeraj, , [facility] Dr [place], first [id number] 120, Taran 120, , weeks gestation Lucho [place], [place] of [place], tel: [phone]. , [place]. tel: tel: [phone] [facility] Supervision of Jan- Vizcaino Referring In Womens elderly 0-201 Patricia. Provider: Elier BACK, multigravida, 7 700 Patricia Vizcaino PO Box first [facility], 700 1522, trimesterPrevious Center [facility], Low Transverse , [facility] Dr [place], C-SectionEncntr 120, Taran 120, , screen for Lucho Yepez, infections w sexl [place]RAY, tel: mode of [phone]. transmissEncounte , [place]. tel: r for screening tel: [phone] for oth [phone] infec/parastc diseasesEncounter for suprvsn of normal , first trimesterEncounte r for screening of mother9 weeks gestation of [facility] Encounter for Mar-0 Vizcaino Referring In Womens screening for 9-201 Patricia. Provider: Elier BAKC, lipoid 7 700 Patricia Vizcaino PO Box disordersEncounte [facility], 700 1522, r for screening [facility], for oth suspected , [facility] Dr MURRAY, endocrine 120, Taran 120, , disorderOther L[place]o [place], [place] medical terminologist TRE[place]OR [place]RAY, tel: (current) drug [phone]. therapy , [place]. tel: tel: [phone] [facility] Nicotine Nov- Vizcaino Referring In Womens dependence, Patricia. Provider: Elier BACK, lonnie, 7 700 Patricia Vizcaino PO Box uncomplicatedHirs Medical , 700 1522, utismEncntr [facility], cutting machine operator exam Dr, [facility] Dr MURRAY, (general) 120, Tar[place] 120, [id number], (routine) w [place], abnormal findings [place], tel: [phone]. , [place]. tel: tel: [phone] [facility] Morbid (severe) Vizcaino Referring In Womens obesity due to Patricia. Provider: Elier BACK, excess 5 700 Patricia Vizcaino PO Box caloriesNicotine Medical , 700 1522, dependence, [facility] Ruby, lonnie, , [facility] Dr MURRAY, uncomplicatedHirs 120, Traan 120, , utismEncntr for [place], cutting machine operator exam [place], tel: (general) [phone]. (routine) w , [place]. tel: abnormal tel: [phone] findingsEncounter [phone] for removal of intrauterine contraceptive deviceEncounter for oth general cnsl and advice on procreationBody mass index (BMI) 40.0-44.9, adult [facility] Vizcaino In Womens - Patricia. Health NAZANIN, 3 700 PO Box Medical [address], [address] [address] Tina, [place], 120, , [place], [place], tel: [phone] , [place]. tel: [phone] Family History Family Member Diagnosis Age At [...] Record Payers Payer name Insurance type Covered libertarian ID Authorization(s) BCBS [facility] [id number] [employer] [place] [employer] - Medicaid [place] [id number] [facility] [id number] Medicaid BCBS Out Of State [id number] BCBS [facility] [id number] [employer] [place] [employer] - Medicaid [place] [id number] Social History Type Description Quantity Date Captured Alcohol Use Details No Caffeine Use Details Unknown Tobacco Use Status Smoking Status Current every day smoker Vital Signs Date / Height Weight BMI Pulse Blood Temperature Respiratory Body Head BMI Time: Rate Pressure Rate Surface Circumference percentile Area 291.00 42.3 140/87 -2017 lbs 5 mm[Hg] 10:13 kg/m AM eter (2) 291.00 42.3 -2016 lbs 5 10:12 kg/m AM eter (2) Chief Complaint And Reason For Visit Unknown Chief Complaint And Reason For Visit Reason For Referral Reason For Referral Unknown Plan Of Care Date Type Action Status Goal Tobacco cessation counseling completed Goal Tobacco cessation counseling completed Goal Tobacco cessation counseling completed Appointment Heidi Dailey [place] [facility] [place]PT[place] BOOKED Appointment Heidi Dailey BOOKED Future Order: Lab Order Pap Smear With HPV Reflex If Ordered ASCUS ([id number]) Future Order: Radiology Order OB Detailed Complete Ultrasound Ordered ([id number]) Future Order: Radiology Order Ultrasound OB Follow-up ([id number]) Ordered Future Order: Radiology Order Ultrasound OB Follow-up ([id number]) Ordered Date Type Problem Goal Intervention Status [...]
--- OUTSIDE RECORDS SUMMARY | 2017-08-29 05:32 | External Medical Summary | Continuity of Care Document ---
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 Supervision of elderly multigravida, - first trimester Encntr screen for infections w sexl - mode of transmiss Encounter for screening for oth - infec/parastc diseases Previous Low Transverse - Encounter for suprvsn of normal - , first trimester Encounter for screening of - mother 9 weeks gestation of - Morbid (severe) obesity due to excess calories Nicotine dependence, cigarettes, uncomplicated Hirsutism Encounter for removal of intrauterine - contraceptive device Encounter for oth general cnsl and advice on procreation 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 Body [...] second trimester 23 weeks gestation of - Encounter for screening for lipoid - disorders Encounter for screening for oth - suspected endocrine disorder Other intermediate (current) drug therapy Encounter for suprvsn of normal - , second trimester 19 weeks gestation of - IUD Surveillance - Active Procedures Procedure Date OB Visit No Charge Results Test Name Date and Time Measure Units Reference Range Abnormal Flag Comments Panel Description: Glucose [Mass/volume] in Serum or Plasma --1 hour post 50 g glucose PO GLUCOSE, 121 mg/dL <140 N Test performed at [facility] S[facility]EN 14:03:00 [employer] [id number] (50G)-[address] [place] [address]Sascnhlk: DAVONTE BENITEZ DO,MPH Panel Description: HEMOGLOBIN + HEMATOCRIT HEMOGLOBIN 14:03:00 10.6 g/dL 11.7-15.5 L HEMATOCRIT 14:03:00 31.7 % 35.0-45.0 L Test performed at [facility] [id number] [place] [address]Pjnzzlyc: DAVONTE BENITEZ DO,MPH Advance Directives Directive Yes / No Effective Date File Name Unknown Encounters Encounter Practice Location Reason(s) Diagnoses Date Provider Care Team Description For Visit Members Bere Yepez May- Vizcaino In Womens 7-201 Patricia. Elier BACK, 7 700 PO [address] Medical [address], [place], , [facility] T[place], 120, [id number], [place], [place]RAY, tel:[phone] , [place]. tel: [phone] Bere Yepez Supervision of Vizcaino Referring In Womens elderly 6-201 Patricia. Provider: Elier BACK multigravida, 7 700 Patricia Vizcaino PO Box second Medical K, 700 1522, trimesterPrevious [facility] Tina, Low Transverse , [facility] Dr MURRAY, C-[id number] weeks 120, Taran 120, , gestation of Lucho Yepez, [place], [place], tel:[phone]. , [place]. tel: tel: [phone] Bere Yepez Supervision of Vizcaino Referring In Womens elderly 6-201 Patricia. Provider: kamala Guillermoavineeraj, 7 700 Patricia Vizcaino PO Box second Medical K, 700 1522, [id number] weeks [place] [address], gestation of Dr, [facility] Dr MURRAY, 120, Taran 120, , Lucho Yepez, [place], tel: [phone]. , [place]. tel: tel: [phone] Bere Yepez Encounter for Denton-2 Vizcaino Referring In Womens suprvsn of normal 8-201 Patricia. Provider: Elier BACK, , second 7 700 Patricia Vizcaino PO Box [id number] weeks Medical K, 700 1522, gestation of [place] [address], , [facility] Dr MURRAY, 120, Tar[place] 120, [id number], Lucho Yepez, [place], tel:[phone]. , [place]. tel: tel: [phone] Bere Yepez Supervision of Mar-2 Vizcaino Referring In Womens Ultrasound elderly 8-201 Patricia. Provider: Health PA, multigravida, 7 700 Patricia Vizcaino PO Box [facility], 700 1522, trimesterPrevious [facility] Tina, Low Transverse , [facility] Dr MURRAY, C-SectionObesity 120, Taran 120, , complicating Lucho Yepez, , second [place], tel: [id number] weeks [phone]. gestation of , [place]. tel: tel: [phone] Bere Yepez Supervision of Denton- Vizcaino Referring In Womens elderly 3-201 Patricia. Provider: Elier BACK, multigravida, 7 700 Patricia Vizcaino PO Box [facility], 700 1522, [facility] Tina, Low Transverse , [facility] Dr MURRAY, C-[id number] weeks 120, Taran 120, , gestation of Lucho Yepez, [place], tel:[phone]. , [place]. tel: tel: [phone] Bere Yepez Morbid (severe) February- Vizcaino Referring In Womens obesity due to 6-201 Patricia. Provider: Elier BACK, excess 7 700 Patricia Vizcaino PO Box [facility], 700 1522, on of [facility], jessicagravineeraj, , [facility] Dr MURRAY, first [id number] 120, Taran 120, , weeks gestation Yepez Ye[place], [place] of [place] M[place]RAY, tel: [phone]. , [place]. tel: tel: [phone] Bere Yepez Supervision of Apr-2 Vizcaino Referring In Womens elderly 0-201 Patricia. Provider: Elier BACK, multigravida, 7 700 Patricia Vizcaino PO Box [facility], 700 1522, trimesterEncntr [facility], screen for Dr, [facility] [address] MURRAY, infections w sexl 120, Taran 120, , mode of Lucho Yepez, transmissEncounte [place]RAY, tel: r for screening [phone]. [address] for oth , [place]. tel: infec/parastc tel: [phone] diseasesPrevious [id number] Low Transverse C-SectionEncounte r for suprvsn of normal , first trimesterEncounte r for screening of mother9 weeks gestation of [facility] Encounter for Dec- Vizcaino Referring In Womens screening for 9-201 Patricia. Provider: Health NAZANIN, lipoid 7 700 Patricia Vizcaino PO Box disordersEncounte Medical , 700 1522, r for screening [facility], for oth suspected , [facility] Dr MURRAY, endocrine 120, Taran 120, , disorderOther Lucho Yepez, intermediate [place]RAY, tel: (current) drug [phone]. therapy , [place]. tel: tel: [phone] Bere Yepez Nicotine Nov- Vizcaino Referring In Womens dependence, Patricia. Provider: Health NAZANIN, cigarettes, 7 700 Patricia Vizcaino PO Box uncomplicatedHirs Medical , 700 1522, utismEncntr for [facility], giver exam , [facility] Dr MURRAY, (general) 120, Tar[place] 120, [id number], (routine) w L[place]o Yepez, abnormal findings [place]RAY, tel: [phone]. , [place]. tel: tel: [phone] Bere Yepez Morbid (severe) Vizcaino Referring In Womens obesity due to -201 Patricia. Provider: Health PA, excess 700 Patricia Vizcaino PO Box caloriesNicotine Medical , 700 1522, dependence, [facility], cigarettes, , [facility] Dr MURRAY, uncomplicatedHirs 120, Taran 120, [id number], utismEncounter Lucho Yepez, for removal of KSTREVOR, tel: intrauterine [phone]. [address] contraceptive , [place]. tel: deviceEncounter tel: [phone] for oth general [phone] cnsl and advice on procreation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Body mass index (BMI) 40.0-44.9, adult [facility] Vizcaino In Womens 8-201 Patricia. [employer] ID, 3 700 PO [facility] 15[address], [address] Tina, [facility], 120, [id number], [place], [place], tel:[phone] , [place]. tel:[phone] Family History Family Member Diagnosis Age At [...] Insurance type Covered libertarian ID Authorization(s) BCBS [facility] [id number] [employer] [place] [employer] - Medicaid MC [id number] [facility] [id number] Medicaid BCBS Out Of [facility] [id number] Social History Type Description Quantity Date Captured Alcohol Use Details No Caffeine Use Details Unknown Tobacco Use Status Smoking Status Current every day smoker Vital Signs Date / Height Weight BMI Pulse Blood Temperature Respiratory Body Head BMI Time: Rate Pressure Rate Surface Circumference percentile Area 290.90 42.3 127/70 -2017 lbs 4 mm[Hg] 1:42 kg/m PM eter (2) Chief Complaint And Reason For Visit Unknown Chief Complaint And Reason For Visit Reason For Referral Reason For Referral Unknown Plan Of Care Date Type Action Status Goal Tobacco cessation counseling completed Goal Tobacco cessation counseling completed Goal Tobacco cessation counseling completed Appointment Heidi Dailey BOOKED Appointment Heidi Dailey BOOKED [place] [facility] [place] Future Order: Lab Order Pap Smear With HPV Reflex If Ordered ASCUS (WPMPap1) Future Order: Radiology Order OB Detailed Complete Ultrasound Ordered ([id number]) Date Type Problem Goal Intervention Status Start [...]
--- OUTSIDE RECORDS SUMMARY | 2017-08-29 05:32 | External Medical Summary | Continuity of Care Document ---
:1980 Author Organization [facility] Address [address] [place], [place] [address] Phone Support Name Relationship Address Phone Glenn Dailey spouse [address] [phone] [place] [address] Allergies, Adverse Reactions, Alerts Substance Reaction Severity Status No Known Drug Allergies Unknown Active Medications Medication Instructions Dosage Effective Dates Status Comments (start - stop) Tylenol Extra take 2 tablet by 1000 MG - Active Strength 500 mg oral route every 6 tablet hours as needed ranitidine 150 mg take 1 tablet by 150 MG - Active tablet ORAL route every day ferrous sulfate take 1 tablet by 325 MG - Active 325 mg (65 mg ORAL route every iron) tablet day Plus take 1 tablet by Not Available - Active (calcium oral route every carbonate) 27 mg day iron-1 mg tablet Problems Condition Effective Dates (start - stop) Clinical Status Nicotine dependence, cigarettes, uncomplicated Hirsutism 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 Supervision [...] Nicotine dependence, cigarettes, uncomplicated Hirsutism 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 Encounter [...] second trimester 26 weeks gestation of - Encounter for screening for lipoid - disorders Encounter for screening for oth - suspected endocrine disorder [facility] ([facility] drug therapy 19 weeks gestation of - Encounter for suprvsn of normal - , second trimester IUD Surveillance - Active Procedures Procedure Date Unknown Results Test Name Date and Time Measure Units Reference Range Abnormal Flag Comments Unknown Advance Directives Directive Yes / No Effective Date File Name Unknown Encounters Encounter Practice Location Reason(s) Diagnoses Date Provider Care Team Description For Visit Members Associates Lucho Vizcaino In Womens 7-201 Patricia. Health NAZANIN, 7 700 [address], [place] [address] Tina, [facility] [place], 120, , [place], tel:[phone] [facility] , [place]. tel: [phone] Associates L[facility]o Previous Low Vizcaino Referring In Womens Transverse 6-201 Patricia. Provider: Health NAZANIN C-SectionSupervis 7 700 Patricia Vizcaino PO Box ion of [facility] Medical K, 700 1522, multigravida, [place] Adiel Wilder, elver Valdovinos, [facility] [address] MURRAY, [id number] weeks 120, [place] 120, [id number], gestation of [place], [place], tel:[phone]. , [place]. tel: tel: [phone] Bere [place] Supervision of Apr- Vizcaino Referring In Womens elderly 6-201 Patricia. Provider: Elier BACK multigravida, 7 700 Patricia Vizcaino PO Box [facility], 700 1522, [id number] weeks [facility] Solomon, gestation of Dr, [facility] Dr MURRAY, 120, [place] 120, , Lucho [place], [place], [place], tel: [phone]. , [place]. tel: tel: [phone] [place] 19 weeks Mar- Vizcaino Referring In Womens gestation of 8- Patricia. Provider: Elier BACK pregnancyEncounte 7 700 Patricia Vizcaino PO Box r for suprvsn of [facility], 700 1522, normal , [facility] Solomon, second trimester Dr, [facility] Dr MURRAY, 120, [place] 120, , Lucho [place], [place], [place], tel: [phone]. , [place]. tel: tel: [phone] Bere [place] Supervision of Vizcaino Referring In Womens Ultrasound elderly 8- Patricia. Provider: jessica Guillermogravineeraj, 7 700 Patricia Vizcaino PO Box [facility], 700 1522, trimesterPrevious [facility] Solomon, Low Transverse , [facility] Dr MURRAY, C-SectionObesity 120, [place] 120, [id number], complicating Lucho [place], [place] , second [place], tel: [id number] weeks [phone]. gestation of , [place]. tel: tel: [phone] Bere [place] Supervision of Vizcaino Referring In Womens elderly 3-201 Patricia. Provider: Elier BACK multigravida, 7 700 Patricia Vizcaino PO Box [facility], 700 1522, trimesterPrevious [facility] Solomon, Low Transverse , [facility] Dr MURRAY, [id number] weeks 120, [place] 120, , gestation of Lucho [place], [place], [place], tel: [phone]. , [place]. tel: tel: [phone] Associates [facility] Morbid (severe) February- Vizcaino Referring In Womens obesity due to 6-201 Patricia. Provider: Elier BACK, excess 7 700 Patricia Vizcaino PO Box [facility] 152, on of elderly [facility], [facility], , [facility] Center Dr MURRAY, first [id number] 120, [place] 120, , weeks gestation Lucho [place], [place] of [place] MURRAY, tel: [phone]. , [place]. tel: tel: [phone] Associates [facility] Supervision of Jan-2 Vizcaino Referring In Womens elderly 0-201 Patrciia. Provider: Elier BACK, multigravida, 7 700 Patricia Vizcaino PO Box [facility], 700 1522, trimesterPrevious [facility], Low Transverse , [facility] Dr MURRAY, C-SectionEncntr 120, [place] 120, , screen for Lucho [place], infections w sexl [place] MURRAY, tel: mode of [phone]. transmissEncounte , [place]. tel: r for screening tel: [phone] for oth [phone] infec/parastc diseasesEncounter for suprvsn of normal , first trimesterEncounte r for screening of mother9 weeks gestation of Bere [place] Encounter for Mar-0 Vizcaino Referring In Womens screening for 9-201 Patricia. Provider: Elier BACK, lipoid 7 700 Patricia Vizcaino PO Box [facility], 700 152, r for screening [facility], for oth suspected , [facility] Center Dr MURRAY, endocrine 120, [place] 120, , disorderOther Lucho [place], [place] [facility] [place] M[place]RAY, tel: (current) drug [phone]. therapy , [place]. tel: tel: [phone] [facility] Nicotine Nov- Vizcaino Referring In Womens dependence, Patricia. Provider: Elier BACK, lonnie, 7 700 Patricia Vizcaino PO Box uncomplicatedHirs Medical K, 700 1522, utismEncntr [facility], children's service worker exam Dr, [place] Center Dr MURRAY, (general) 120, [place] 120, [id number], (routine) w [place], abnormal findings [place], tel: [phone]. , . tel: tel: [phone] [facility] Morbid (severe) Vizcaino Referring In Womens obesity due to Patricia. Provider: Elier BACK, excess 5 700 Patricia Vizcaino PO Box caloriesNicotine Medical K, 700 1522, dependence, [facility], lonnie, , [place] Dr MURRAY, uncomplicatedHirs 120, [place] 120, , utismEncntr for [place], children's service worker exam [place], tel: (general) [phone]. (routine) w , [place]. tel: abnormal tel: [phone] findingsEncounter [phone] for removal of intrauterine contraceptive deviceEncounter for oth general cnsl and advice on procreationBody mass index (BMI) 40.0-44.9, adult [facility] Vizcaino In Womens Patricia. Health NAZANIN, 3 700 [address], [place] [address] Tina, [place], 120, , [place], tel: [phone] , . tel: [phone] Family History Family Member Diagnosis Age At [...] Insurance type Covered libertarian ID Authorization(s) BCBS [facility] [id number] [facility] - [id number] Medicaid BCBS [facility] [id number] [employer] - Medicaid MC [id number] Social History Type Description Quantity Date Captured [...] Heidi Dailey KEPT Appointment Heidi Dailey - [facility] - RC/S, PPTL BOOKED Future Order: Lab Order Pap Smear With HPV Reflex If Ordered ASCUS ([id number]) Future Order: Radiology Order OB Detailed Complete Ultrasound Ordered ([id number]) Date Type Problem Goal Intervention Status Start [...]
--- OUTSIDE RECORDS SUMMARY | 2017-08-29 05:33 | External Medical Summary | Continuity of Care Document ---
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 Provider: Health PA, fetl grth, third 7 700 Patricia Vizcaino PO Box tri, unsp31 weeks Medical , 700 1522, gestation of [facility], Dr, [facility] Dr MURRAY, 120, [place] 120, [id number], Lucho [place], [place], tel: [phone]. , [place]. tel: tel: [phone] Bere [place] Previous Low Sep-0 Vizcaino Referring In Womens Transverse 7-201 Patricia. Provider: Elier BACK, [id number] weeks 7 700 Patricia Vizcaino PO Box gestation of [facility], 700 1522, [address], [facility] Dr MURRAY, 120, [place] 120, [id number], [place], [place], tel: [phone]. , [place]. tel: tel: [phone] Bere [place] Supervision of Sep-0 Vizcaino Referring In Womens Ultrasound elderly 7- Patricia. Provider: Elier BACK, multigravida, 7 700 Patricia Vizcaino PO Box third [facility], 700 1522, trimesterMatern [facility], care for oth or , [facility] Dr MURRAY, susp poor fetl 120, Tar[place] 120, [id number], grth, third [place], Lucho [place], [place] unsp29 weeks [place], [place], tel:+ gestation of [phone]. , [place]. tel: tel: [phone] Bere [place] Aug-1 Vizcaino In Womens 7-201 Patricia. Elier BACK, 7 700 [address], [place] [address] Tina, [facility] [place], 120, [id number], [place], tel: [phone] , [place]. tel: [phone] Bere [place] Previous Low Aug-1 Vizcaino Referring In Womens Transverse 6-201 Patricia. Provider: Elier BACK, C-SectionSupervis 7 700 Patricia Vizcaino PO Box ion of [facility], 700 1522, multigravida, [place] [address], [facility] Dr MURRAY, [id number] weeks 120, Tar[place] 120, , gestation of Lucho [place], [place], [place], tel:[phone]. , [place]. tel: tel: [phone] Bere [place] Supervision of Vizcaino Referring In Womens elderly 6-201 Patricia. Provider: Elier BACK, multigravida, 7 700 Patricia Vizcaino PO Box [facility], 700 1522, [id number] weeks [facility], gestation of Dr, [facility] Dr MURRAY, 120, [place] 120, , Lucho [place], [place], [place], tel:[phone]. , [place]. tel: tel: [phone] Bere [place] 19 weeks Mar- Vizcaino Referring In Womens gestation of 8-201 Patricia. Provider: Elier BACK, pregnancyEncounte 7 Patricia Vizcaino PO Box r for suprvsn of [facility], 1522, normal , [facility], second trimester Dr, [facility] Dr MURRAY, 120, [place] 120, , Lucho [place], [place], [place], tel:[phone]. , [place]. tel: tel: [phone] Bere [place] Obesity Vizcaino Referring In Womens Ultrasound complicating 8-201 Patricia. Provider: Elier BACK, , second 7 700 Patricia Vizcaino PO Box trimesterPrevious Medical K, 700 1522, Low Transverse [facility], C-SectionSupervis , [facility] Dr MURRAY, ion of elderly 120, [place] 120, , multigravida, Lucho [place], [place] second [place] MURRAY, tel: [id number] weeks [phone]. gestation of , [place]. tel: tel: [phone] Bere [place] Supervision of Vizcaino Referring In Womens elderly 3-201 Patricia. Provider: Elier BACK, multigravineeraj, 7 700 Patricia Vizcaino PO Box [facility], 700 1522, trimesterPrevious [facility], Low Transverse , [facility] Dr MURRAY, [id number] weeks 120, Tar[place] 120, , gestation of [place], [place], [place], tel: [phone]. , [place]. tel: tel: [phone] Bere [place] Morbid (severe) February- Vizcaino Referring In Womens obesity due to 6-201 Patricia. Provider: Elier BACK, excess 7 700 Patricia Vizcaino PO Box caloriesSupervisi [facility], 700 152, on of elderly [facility], multigravineeraj, , [facility] Dr MURRAY, first [id number] 120, [place] 120, , weeks gestation Lucho L[place], [place] of [place] MURRAY, tel: [phone]. , [place]. tel: tel: [phone] Bere [place] Supervision of Jan-2 Vizcaino Referring In Womens elderly 0-201 Patricia. Provider: Elier BACK, jessicagravida, 7 700 Patricia Vizcaino PO Box [facility], 700 1522, trimesterPrevious [facility], Low Transverse , [facility] Dr MURRAY, C-SectionEncntr 120, [place] 120, , screen for [place], infections w sexl [place] MURRAY, tel: mode of [phone]. [facility] , [place]. tel: r for screening tel: [phone] for oth [phone] infec/parastc diseasesEncounter for screening of mother9 weeks gestation of pregnancyEncounte r for suprvsn of normal , first trimester Associates Lucho Encounter for Mar-0 Vizcaino Referring In Womens screening for 9-201 Patricia. Provider: Elier BACK, lipoid 7 700 Patricia Vizcaino PO Box [facility], 700 1522, r for screening 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 therapy , [place]. tel: tel: [phone] Associates [facility] Nicotine Nov- Vizcaino Referring In Womens dependence, Patricia. Provider: Elier BACK, lonnie, 7 700 Patricia Vizcaino PO Box uncomplicatedHirs Medical K, 700 1522, utismEncntr for [place] [facility] [place], pivot end polisher exam Dr, [facility] Center Dr MURRAY, (general) 120, [place] 120, , (routine) w Lucho [place], abnormal findings [place], [place], tel: [phone]. , [place]. tel: tel: [phone] Associates [facility] Morbid (severe) Sep- Vizcaino Referring In Womens obesity due to Patricia. Provider: Elier BACK, excess 5 700 Patricia Vizcaino PO Box caloriesNicotine Medical K, 700 1522, dependence, [facility] [place], lonnie, , [facility] Dr MURRAY, uncomplicatedHirs 120, [place] 120, , utismEncounter Lucho [place], for removal of [place], tel: intrauterine [phone]. contraceptive , [place]. tel: deviceEncounter tel: [phone] for oth general [phone] cnsl and advice on procreationEncntr for pivot end polisher exam (general) (routine) w abnormal findingsBody mass index (BMI) 40.0-44.9, adult Associates Lucho Vizcaino In Womens -201 Patricia. Health PA, 3 700 [address], [place] [address] Tina, [place], 120, , [place], [place], tel:[phone] , [place]. tel: [phone] Family History Family Member Diagnosis Age At [...] Record Payers Payer name Insurance type Covered republican ID Authorization(s) BCBS [facility] [id number] [employer] [place] [employer] - Medicaid [place] [id number] [facility] [id number] Medicaid BC Out Of State [id number] [facility] [id number] [employer] [place] [employer] - Medicaid MC [id number] Social History Type Description Quantity Date Captured [...] BOOKED Appointment Heidi Dailey [place] [facility] [place] Future Order: Radiology Order Ultrasound OB Follow-up ([id number]) Ordered Future Order: Lab Order Pap Smear With HPV Reflex If Ordered ASCUS ([id number]) Future Order: Radiology Order OB Detailed Complete Ultrasound Ordered ([id number]) Date Type Problem Goal Intervention Status Start [...]
--- OUTSIDE RECORDS SUMMARY | 2017-08-29 05:33 | External Medical Summary | Continuity of Care Document ---
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 Supervision of elderly multigravida, - first trimester Previous Low Transverse - Encounter for suprvsn of normal - , first trimester Encounter for screening of - mother 9 weeks gestation of - Encntr screen for infections w sexl - mode of transmiss Encounter for screening for oth - infec/parastc diseases Morbid (severe) obesity due to excess - calories Supervision of elderly multigravida, - third trimester Previous Low Transverse - 33 weeks gestation of - Morbid (severe) obesity due to excess calories Nicotine dependence, cigarettes, uncomplicated Hirsutism 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 Encounter [...] Transverse - 29 weeks gestation of - Encounter for screening for lipoid - disorders Encounter for screening for oth - suspected endocrine disorder 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 Provider: Elier BACK, excess 7 700 Patricia Vizcaino PO Box [facility], [address], on of [facility] falguni [place], , [facility] [address] MURRAY, third 120, [place] 120, [id number], trimesterPrevious Lucho Ye[place], Low Transverse TREVOR MURRAY, tel: C-[id number] weeks [phone]. gestation of , [place]. tel: tel: [phone] Bere Yepez Supervision of Jul-0 Vizcaino Referring In Womens Ultrasound elderly - Patricia. Provider: kamala Guillermoavineeraj, 7 700 Patricia Vizcaino PO Box third [facility], 700 1522, trimesterPrevious [place] Adiel Wilder, Low Transverse , [facility] Dr MURRAY, C-SectionMatern 120, [place] 120, [id number], care for oth or Lucho Yepez, susp poor fetl TREVOR MURRAY, tel: grth, third tri, [phone]. unsp33 weeks , [place]. tel: gestation of tel: [phone] Bere Yepez Matern care for Jun-2 Vizcaino Referring In Womens oth or susp poor -201 Patricia. Provider: Elier BACK, fetl grth, third 7 700 Patricia Vizcaino PO Box tri, unsp31 weeks Medical , 700 1522, gestation of [place] Adiel Wilder, , [facility] Dr MURRAY, 120, [place] 120, , Lucho [place], TREVOR MURRAY, tel:+ [phone]. , [place]. tel: tel: [phone] Bere Yepez Previous Low Sep-0 Vizcaino Referring In Womens Transverse 7-201 Patricia. Provider: Elier BACK, C-Uhlhxld15 weeks 7 700 Patricia Vizcaino PO Box gestation of Medical K, 700 1522, [facility] [address] Tina, [facility] Dr MURRAY, 120, [place] 120, , [place], [place], [place], tel: [phone]. , [place]. tel: tel: [phone] Bere Yepez Supervision of Sep-0 Vizcaino Referring In Womens Ultrasound elderly 7-201 Patricia. Provider: Elier BACK, multigravida, 7 700 Patricia Vizcaino PO Box third Medical K, 700 1522, trimesterMatern [facility] [place], care for oth or Dr, [facility] Dr MURRAY, susp poor fetl 120, Taran 120, , grth, third tri, Lucho [place], [place] unsp29 weeks TREVOR MURRAY, tel: gestation of [phone]. , [place]. tel: tel: [phone] Bere Yepez Aug-1 Vizcaino In Womens 7-201 Patricia. Elier BACK, 7 700 PO [address] Medical [address], Center Dr Tina, [facility] TREVOR, 120, , [place], [place], tel: [phone] , [place]. tel: [phone] Bere Yepez Supervision of Aug-1 Vizcaino Referring In Womens elderly 6-201 Patricia. Provider: Elier BACK, multigravida, 7 700 Patricia Vizcaino PO Box second Medical K, 700 1522, trimesterPrevious [facility] [place], Low Transverse , [facility] Dr MURRAY, C-Dxqwgqg60 weeks 120, Tar[place] 120, [id number], gestation of Lucho Yepez, TREVOR, TREVOR, tel: [phone]. , [place]. tel: tel: [phone] Yepez Supervision of Apr- Vizcaino Referring In Womens elderly 6-201 Patricia. Provider: Elier BACK multigravida, 7 700 Patricia Vizcaino PO Box [facility], 700 152, weeks [facility], gestation of Dr, [facility] Dr MURRAY, 120, [place] 120, [id number], Lucho Ye[place], TREVOR, TREVOR, tel:[phone]. , [place]. tel: tel: [phone] Bere Yepez 19 weeks Mar- Vizcaino Referring In Womens gestation of 8-201 Patricia. Provider: Elier BACK, pregnancyEncounte 7 700 Patricia Vizcaino PO Box r for suprvsn of [facility], 152, normal , [facility], second trimester Dr, [facility] Dr MURRAY, 120, [place] 120, , Lucho Yepez, TREVOR, TREVOR, tel:[phone]. , [place]. tel: tel: [phone] Bere Yepez Supervision of Vizcaino Referring In Womens Ultrasound elderly 8-201 Patricia. Provider: Elier BACK multigravida, 7 700 Patricia Vizcaino PO Box [facility], 152, trimesterPrevious [facility], Low Transverse , [facility] Dr MURRAY, C-SectionObesity 120, [place] 120, , complicating Lucho Yepez, , second TREVOR, TREVOR, tel: weeks [phone]. gestation of , [place]. tel: tel: [phone] Bere Yepez Supervision of Mar- Vizcaino Referring In Womens elderly 3-201 Patricia. Provider: Elier BACK multigravida, 7 700 Patricia Vizcaino PO Box [facility], 152, trimesterPrevious [facility] [place], Low Transverse , [facility] Dr MURRAY, C-Mtlslld70 weeks 120, Taran 120, [id number], gestation of Lucho Yepez, TREVOR, TREVOR, tel:[phone]. , [place]. tel: tel: [phone] Bere Yepez Morbid (severe) February- Vizcaino Referring In Womens obesity due to 6-201 Patricia. Provider: Elier BACK, excess 7 700 Patricia Vizcaino PO Box caloriesSupervisi Medical , 700 1522, on of elderly [facility] [place], jessicagravineeraj, , [facility] Dr MURRAY, first tpclttirp32 120, [place] 120, , weeks gestation Lucho Yepez, of [place]VOR MURRAY, tel: [phone]. , [place]. tel: tel: [phone] Bere Yepez Supervision of Jan- Vizcaino Referring In Womens elderly 0-201 Patricia. Provider: Elier BACK, multigravida, 7 700 Patricia Vizcaino PO Box first [facility], 700 1522, trimesterPrevious [facility], Low Transverse , [facility] Dr MURRAY, C-SectionEncounte 120, [place] 120, , r for suprvsn of Lucho Ye[place], normal , TREVOR MURRAY, tel: first [phone]. [id number] [facility] , [place]. tel: r for tel: [phone] screening of [id number] mother9 weeks gestation of pregnancyEncntr screen for infections w sexl mode of transmissEncounte r for screening for oth infec/parastc diseases Bere Yepez Encounter for Dec- Vizcaino Referring In Womens screening for 9-201 Patricia. Provider: Elier BACK, lipoid 7 700 Patricia Vizcaino PO Box disordersEncounte [facility], 700 1522, r for screening [facility], for oth suspected , [facility] Dr MURRAY, endocrine 120, [place] 120, , disorderOther Lucho Yepez, senior living TRE[place]OR MURRAY, tel: (current) drug [phone]. therapy , [place]. tel: tel: [phone] Bere Yepez Nicotine Fe- Vizcaino Referring In Womens dependence, 8-201 Patricia. 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 , [place]. tel: tel: [phone] [facility] Morbid (severe) Vizcaino Referring In Womens obesity due to Patricia. Provider: Health NAZANIN, excess 5 700 Patricia Vizcaino PO Box caloriesNicotine Medical K, 700 1522, dependence, [facility] [place], lonnie, , [facility] Dr MURRAY, uncomplicatedHirs 120, [place] 120, , utismEncntr for [place], electro mechanical technician exam [place], tel: (general) [phone]. (routine) w , [place]. tel: abnormal tel: [phone] findingsEncounter [phone] for removal of intrauterine contraceptive deviceEncounter for oth general cnsl and advice on procreationBody mass index (BMI) 40.0-44.9, adult [facility] Vizcaino In Womens - Patricia. Health NAZANIN, 3 700 [address] Medical [address], [address] [place], [place], 120, , [facility] [place], tel: [phone] , [place]. tel: [phone] Family History Family Member Diagnosis Age At [...] name Insurance type Covered democrat ID Authorization(s) BCDYAN GARCIA [id number] [employer] [place] [employer] - Medicaid [place] [id number] [facility] [id number] Medicaid BCBS Out Of State [id number] BCBS [facility] [id number] [employer] [place] [employer] - Medicaid [place] [id number] Social History Type Description Quantity Date Captured Alcohol Use Details No Caffeine Use Details Unknown Tobacco Use Status Smoking Status Current every day smoker Vital Signs Date / Height Weight BMI Pulse Blood Temperature Respiratory Body Head BMI Time: Rate Pressure Rate Surface Circumference percentile Area 42.1 -2016 9 8:51 kg/m AM eter (2) 290.70 42.3 126/74 2017 lbs 1 mm[Hg] 8:58 kg/m AM eter (2) Chief Complaint And Reason For Visit Unknown Chief Complaint And Reason For Visit Reason For Referral Reason For Referral Unknown Plan Of Care Date Type Action Status Goal Tobacco cessation counseling completed Goal Tobacco cessation counseling completed Goal Tobacco cessation counseling completed Appointment Heidi Dailey BOOKED Appointment Heidi Dailey - [facility] - [facility]/S, PPTL BOOKED Future Order: Lab Order Pap Smear With HPV Reflex If Ordered ASCUS ([id number]) Future Order: Radiology Order OB Detailed Complete Ultrasound Ordered ([id number]) Future Order: Radiology Order Ultrasound OB Follow-up ([id number]) Ordered Future Order: Radiology Order Ultrasound OB Follow-up ([id number]) Ordered Date Type Problem Goal Intervention Status [...]
--- OUTSIDE RECORDS SUMMARY | 2017-08-29 05:33 | External Medical Summary | Continuity of Care Document ---
:1980 Author Organization [facility] Allergies Active Description Code Type Severity Reaction Onset Reported/ Identified Relationship Clinical to Patient Status Yes No Known 34470 3 N/A N/A Drug 0 Allergies Medications Medication Packaging Start Date Stop Date Route Dosage Sig Tablet 10/03/2015 12/17/2016 METFORMIN HCL take 1 tablet by oral route 3 times every day Tablet 12/17/2016 02/05/2017 METFORMIN HCL take 1 tablet by oral route 3 times every day Problems Date Dx Attending Type Code Diagnosis Diagnosed By Coded 12/30/2016 Patricia Vizcaino Z13.220 Encounter for screening for lipoid disorders 12/30/2016 Patricia Vizcaino Z13.29 Encounter for screening for oth suspected endocrine disorder 12/30/2016 Patricia Vizcaino Z79.899 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 12/30/2016 Patricia Vizcaino Z13.220 Encounter for screening for lipoid disorders 12/30/2016 Patricia Vizcaino13.29 Encounter for screening for oth suspected endocrine disorder 12/30/2016 Patricia Vizcaino Z79.899 Other long-term (current) drug therapy 02/18/2017 Patricia Vizcaino O09.521 Supervision of elderly multigravida, first trimester 02/18/2017 Patricia Vizcaino O34.211 Previous Low Transverse 02/18/2017 Patricia Vizcaino Z11.3 Encntr screen for infections w sexl mode of transmiss 02/18/2017 Patricia Vizcaino Z11.8 Encounter for screening for oth infec/parastc diseases 02/18/2017 Patricia Vizcaino Z34.81 Encounter for suprvsn of normal , first trimester 02/18/2017 Patricia Vizcaino Z36 Encounter for screening of mother 02/18/2017 Patricia Vizcaino Z3A.09 9 weeks gestation of 02/18/2017 Patricia Vizcaino O09.521 Supervision of elderly multigravida, first trimester 02/18/2017 Patricia Vizcaino O34.211 Previous Low Transverse 02/18/2017 Patricia Vizcaino11.3 Encntr screen for infections w sexl mode of transmiss 02/18/2017 Patricia Vizcaino11.8 Encounter for screening for oth infec/parastc diseases 02/18/2017 Patricia Vizcaino Z34.81 Encounter for suprvsn of normal , first trimester 02/18/2017 Patricia Vizcaino Z36 Encounter for screening of mother 02/18/2017 Patricia Vizcaino3A.09 9 weeks gestation of 04/16/2017 Patricia Vizcaino O09.522 Supervision of elderly multigravida, second trimester 04/16/2017 Patricia Vizcaino O34.211 Previous Low Transverse 04/16/2017 Patricia Vizcaino O99.212 Obesity complicating , second trimester 04/16/2017 Patriica Vizcaino3A.19 19 weeks gestation of 06/11/2017 Patricia Vizcaino O09.522 Supervision of elderly multigravida, second trimester 06/11/2017 Patricia Vizcaino O34.211 Previous Low Transverse 06/11/2017 Patricia Vizcaino O99.212 Obesity complicating , second trimester 06/11/2017 Patricia Vizcaino3A.19 19 weeks gestation of 06/11/2017 Patricia Vizcaino O09.522 Supervision of elderly multigravida, second trimester 06/11/2017 Patricia Vizcaino O34.211 Previous Low Transverse 06/11/2017 Patricia Vizcaino O99.212 Obesity complicating , second trimester 06/11/2017 Patricia Vizcaino3A.19 19 weeks gestation of 06/11/2017 Patricia Vizcaino O09.522 Supervision of elderly multigravida, second trimester 06/11/2017 Patricia Vizcaino O34.211 Previous Low Transverse 06/11/2017 Vizcaino, Patricia Oliveira W O99.212 Obesity complicating , second trimester 06/11/2017 Vizcaino, Patricia Gonzalez Z3A.19 19 weeks gestation of 06/11/2017 Vizcaino, Patricia Oliveira W O09.522 Supervision of elderly multigravida, second trimester 06/11/2017 Vizcaino, Patricia Gonzalez O34.211 Previous Low Transverse 06/11/2017 Vizcaino, Patricia Oliveira W O99.212 Obesity complicating , second trimester 06/11/2017 Vizcaino, Patricia Gonzalez Z3A.19 19 weeks gestation of 06/11/2017 Vizcaino, Patricia Oliveira W O09.522 Supervision of elderly multigravida, second trimester 06/11/2017 Vizcaino, Patricia Gonzalez O34.211 Previous Low Transverse 06/11/2017 Vizcaino, Patricia Oliveira W O99.212 Obesity complicating , second trimester 06/11/2017 Vizcaino, Patricia Gonzalez Z3A.19 19 weeks gestation of 06/11/2017 Vizcaino, Patricia Oliveira W O09.522 Supervision of elderly multigravida, second trimester 06/11/2017 Vizcaino, Patricia Oliveira W O34.211 Previous Low Transverse 06/11/2017 Vizcaino, Patricia Oliveira W O99.212 Obesity complicating , second trimester 06/11/2017 Vizcaino, Patricia Gonzalez Z3A.19 19 weeks gestation of 06/11/2017 Vizcaino, Patricia Oliveira W O09.522 Supervision of elderly multigravida, second trimester 06/11/2017 Vizcaino, Patricia Oliveira W O34.211 Previous Low Transverse 06/11/2017 Vizcaino, Patricia K W O99.212 Obesity complicating , second trimester 06/11/2017 Vizcaino, Patricia Gonzalez Z3A.19 19 weeks gestation of 06/11/2017 Vizcaino, Patricia K W O09.522 Supervision of elderly multigravida, second trimester 06/11/2017 Vizcaino, Patricia Oliveira W O34.211 Previous Low Transverse 06/11/2017 Vizcaino, Patricia K W O99.212 Obesity complicating , second trimester 06/11/2017 Vizcaino, Patricia Sandoval3A.19 19 weeks gestation of 06/11/2017 Vizcaino, Patricia Gonzalez O09.522 Supervision of elderly multigravida, second trimester 06/11/2017 Vizcaino, Patricia Gonzalez O34.211 Previous Low Transverse 06/11/2017 Vizcaino, Patricia Gonzalez O99.212 Obesity complicating , second trimester 06/11/2017 Vizcaino, Patricia Sandoval3A.19 19 weeks gestation of 06/11/2017 Vizcaino, Patricia Oliveira W O09.522 Supervision of elderly multigravida, second trimester 06/11/2017 Vizcaino, Patricia Gonzalez O34.211 Previous Low Transverse 06/11/2017 Vizcaino, Patricia Gonzalez O99.212 Obesity complicating , second trimester 06/11/2017 Vizcaino, Patricia Sandoavl3A.19 19 weeks gestation of 06/11/2017 Vizcaino, Patricia Gonzalez O09.522 Supervision of elderly multigravida, second trimester 06/11/2017 Vizcaino, Patricia Gonzalez O34.211 Previous Low Transverse 06/11/2017 Vizcaino, Patricia Gonzalez O99.212 Obesity complicating , second trimester 06/11/2017 Carrillo, Patricia Sandoval3A.19 19 weeks gestation of 06/11/2017 Vizcaino, Patricia Gonzalez O09.522 Supervision of elderly multigravida, second trimester 06/11/2017 Carrillo, Patricia Gonzalez O34.211 Previous Low Transverse 06/11/2017 Patricia Vizcaino O99.212 Obesity complicating , second trimester 06/11/2017 Vizcaino, Patricia Sandoval3A.19 19 weeks gestation of 06/11/2017 Patricia Vizcaino Z34.82 Encounter for suprvsn of normal , second trimester 06/11/2017 Vizcaino, Patricia Sandoval3A.19 19 weeks gestation of 06/11/2017 Carrillo, Patricia Gonzalez Z34.82 Encounter for suprvsn of normal , second trimester 06/11/2017 Vizcaino, Patricia Sandoval3A.19 19 weeks gestation of 06/11/2017 Vizcaino, Patricia Sandoval34.82 Encounter for suprvsn of normal , second trimester 06/11/2017 Vizcaino, Patricia Sandoval3A.19 19 weeks gestation of 06/11/2017 Vizcaino, Patricia Gonzalez Z34.82 Encounter for suprvsn of normal , second trimester 06/11/2017 Vizcaino, Patricia Sandoval3A.19 19 weeks gestation of 06/11/2017 Vizcaino, Patricia Gonzalez O09.522 Supervision of elderly multigravida, second trimester 06/11/2017 Vizcaino, Patricia Sandoval3A.23 23 weeks gestation of 06/11/2017 Vizcaino, Patricia Gonzalez O09.522 Supervision of elderly multigravida, second trimester 06/11/2017 Vizcaino, Patricia Sandoval3A.23 23 weeks gestation of 06/11/2017 Vizcaino, Patricia Gonzalez O09.522 Supervision of elderly multigravida, second trimester 06/11/2017 Vizcaino, Patricia Sandoval3A.23 23 weeks gestation of 06/11/2017 Vizcaino, Patricia Gonzalez O09.522 Supervision of elderly multigravida, second trimester 06/11/2017 Vizcaino, Patricia Sandoval3A.23 23 weeks gestation of 06/11/2017 Vizcaino, Patricia Oliveira W O09.522 Supervision of elderly multigravida, second trimester 06/11/2017 Vizcaino, Patricia Gonzalez O34.211 Previous Low Transverse 06/11/2017 Vizcaino, Patricia Sandoval3A.26 26 weeks gestation of 06/11/2017 Vizcaino, Patricia Gonzalez O09.522 Supervision of elderly multigravida, second trimester 06/11/2017 Vizcaino, Patricia Gonzalez O34.211 Previous Low Transverse 06/11/2017 Vizcaino, Patricia Gonzalez Z3A.26 26 weeks gestation of 06/11/2017 Vizcaino, Patricia Gonzalez O09.522 Supervision of elderly multigravida, second trimester 06/11/2017 Vizcaino, Patricia Gonzalez O34.211 Previous Low Transverse 06/11/2017 Vizcaino, Patricia Sandoval3A.26 26 weeks gestation of 06/11/2017 VizcainoPatricia gee O09.522 Supervision of elderly multigravida, second trimester 06/11/2017 Patricia Vizcaino O34.211 Previous Low Transverse 06/11/2017 Patricia Vizcaino.26 26 weeks gestation of 06/26/2017 Patricia Vizcaino O09.523 Supervision of elderly multigravida, third trimester 06/26/2017 Patricia Vizcaino O36.5930 Matern care for oth or susp poor fetl grth, third tri, unsp 06/26/2017 Patricia Vizcaino.29 29 weeks gestation of 07/24/2017 Patricia Vizcaino O09.523 Supervision of elderly multigravida, third trimester 07/24/2017 Patricia Vizcaino O34.211 Previous Low Transverse 07/24/2017 Patricia Vizcaino O36.5930 Matern care for oth or susp poor fetl grth, third tri, unsp 07/24/2017 Patricia Vizcaino.33 33 weeks gestation of Procedures Code Description Performed By Performed On 12/26/2016 92893 Venpnctr fngr/heel/ear stick routne 12/26/2016 18238 Metabolic panel, comprehensive Lipid 12/26/2016 00984 profile TSH 12/26/2016 85604 02/06/2017 70066 Venpnctr fngr/heel/ear stick routne OB 02/06/2017 37901 Visit No Charge OB 02/06/2017 46601 Panel With An HIV Cult, 02/06/2017 77884 bactr, lynda colonycnt, urine Infct 02/06/2017 01192 antign, chlamydia trac, ampl 02/06/2017 83340 Neisseria Gonorrhea, Amplified DNA No 02/06/2017 [facility] Charge Sonogram OB 04/16/2017 01261 US, DETAILED, SNGL FETUS OB 04/16/2017 07203 Visit No Charge OB 05/14/2017 07065 Visit No Charge OB 06/04/2017 39732 Visit No Charge 06/26/2017 33071 Ultrasnd preg uterus, flwup/repeat 07/24/2017 19723 Ultrasnd preg uterus, flwup/repeat Results Encounters ACCT No. Visit Discharge Status Pt. Type Provider Facility Loc./Unit Complaint Date/Time [id number] 07/24/2017 07/24/2017 CLS Outpatient Vizcaino, 10:10:00 23:59:59 Patricia Oliveira [id number] 07/24/2017 07/24/2017 CLS Outpatient Vizcaino, 09:45:00 23:59:59 Patricia Oliveira [id number] 07/10/2017 07/10/2017 CLS Outpatient Vizcaino, 08:45:00 23:59:59 Patricia Oliveira [id number] 06/26/2017 06/26/2017 CLS Outpatient Vizcaino, 09:40:00 23:59:59 Patricia Oliveira [id number] 06/26/2017 06/26/2017 CLS Outpatient Vizcaino, 09:15:00 23:59:59 Patricia Oliveira [id number] 06/05/2017 06/05/2017 CLS Outpatient Vizcaino, 09:33:00 23:59:59 Patricia Oliveira [id number] 06/04/2017 06/04/2017 CLS Outpatient Vizcaino, 13:50:00 23:59:59 Patricia Oliveira [id number] 05/14/2017 05/14/2017 CLS Outpatient Vizcaino, 13:15:00 23:59:59 Patricia Oliveira [id number] 04/16/2017 04/16/2017 CLS Outpatient Vizcaino, 13:35:00 23:59:59 Patricia Oliveira [id number] 04/16/2017 04/16/2017 CLS Outpatient Vizcaino, 13:15:00 23:59:59 Patricia Oliveira [id number] 04/01/2017 04/01/2017 CLS Outpatient Vizcaino, 11:15:00 23:59:59 Patricia Oliveira [id number] 03/04/2017 03/04/2017 CLS Outpatient Vizcaino, 10:45:00 23:59:59 Patricia Oliveira [id number] 02/06/2017 02/06/2017 CLS Outpatient Vizcaino, 09:45:00 23:59:59 Patricia Oliveira [id number] 12/30/2016 12/30/2016 CLS Outpatient Vizcaino, 08:35:00 23:59:59 Patricia Oliveira [id number] 12/26/2016 12/26/2016 CLS Outpatient Vizacino, 13:38:00 23:59:59 Patricia Oliveira [id number] 12/17/2016 12/17/2016 CLS Outpatient Vizcaino, 10:00:00 23:59:59 Patricia Oliveira [id number] 10/03/2015 10/03/2015 [facility] Outpatient Vizcaino, 14:15:00 23:59:59 Patricia Oliveira [id number] 08/22/2017 Document 08:50:00 Registration [id number] 08/14/2017 Document 10:05:00 Registration [id number] 08/07/2017 Document 10:15:00 Registration
[2017-08-29] MEDS ORDERED: CEFAZOLIN PREMIX (MC ONLY) 2 GM/50 ML BAG IV ONE (05:40)
[2017-08-29] MEDS ORDERED: CEFAZOLIN 1 G INJECTION IVP ONE (05:40)
[2017-08-29] MEDS ORDERED: CITRIC ACID/SODIUM CITRATE 30ml PO ONE (05:40)
[2017-08-29] MEDS ORDERED: FAMOTIDINE PB 20 MG/50 ML BAG IV ONE (05:40)
[2017-08-29 06:10] VITALS: BMI 40.4
[2017-08-29] MEDS: LR 1,000 ML IV SCH ×2 (06:11→07:24)
[2017-08-29] MEDS ORDERED: MORPHINE SULFATE PF 5mg/10ml INJ (Duramorph) ONE (07:04)
[2017-08-29] MEDS ORDERED: FentaNYL 100 MCG/2 ML INJECTION ONE (07:04)
[2017-08-29] MEDS ORDERED: ONDANSETRON 4 MG/2 ML INJECTION ONE (07:06)
[2017-08-29] MEDS ORDERED: SALINE FLUSH 10ml SYRINGE ONE (07:07)
[2017-08-29] MEDS ORDERED: EPHEDRINE 50mg/ml INJECTION ONE (07:07)
[2017-08-29] MEDS ORDERED: OXYTOCIN BOLUS BAG 30 UNIT/500 ML ML IV SCH (08:00)
--- NOTE | 2017-08-29 08:11 | Anesthesia Preoperative Report ---
Anesthesia Preoperative Record - Date and Time Date: 08/29/17 Preoperative Diagnosis: repeat c section/pptl Proposed Procedure: repeat , tubal ligation NPO Since Date: 08/28/17 NPO Since Time: 23:00 Allergies/Adverse Reactions: Allergies Allergy/AdvReac Type Severity Reaction Status Date / Time No Known Allergies Allergy Unverified 01/26/14 10:19 - Vital Signs Vital Signs: Temperature 98.1 F 08/29/17 06:04 Pulse Rate 99 08/29/17 06:04 Respiratory Rate 18 08/29/17 06:04 Blood Pressure 115/70 08/29/17 06:04 Pulse Oximetry 98 08/29/17 06:04 Height and Weight: Height 5 ft 11 in Weight 131.542 kg Body Mass Index 40.4 - Medications Inpatient Medications: Current Medications Lactated Ringer's (Lactated Ringers) 1,000 mls @ 150 mls/hr IV .Q6H40M [facility] Last Admin: 08/29/17 07:24 Dose: 150 mls/hr Oxytocin (Pitocin Bolus Bag) 30 unit in 500 mls @ 999 mls/hr IV .Q31M [facility] Stop: 08/29/17 08:30 Last Admin: 08/29/17 07:43 Dose: 999 mls/hr Home Medications: Home Medications Medication Instructions Recorded Confirmed Type Acetaminophen [Tylenol] 1 tab PO PRN #0 tab 01/26/14 History Vits W-Ca,Fe,Fa(<1MG) 1 tab PO DAILY #0 tab 01/26/14 History () Ranitidine 08/18/17 History Is Patient on Beta Amadeo?: No - Medical History Gastrointestional: Reports: Gastroesophageal Reflux Disease Other History: Reports: Now - Surgical History Reproductive Surgery/Treatment: Reports: Section Anesthesia Reactions: None Hx Family Anesthesia Reaction: No History of Motion Sickness: No - Social History Smoking Status: Current every day smoker Hx Chewing Tobacco Use: No Second Hand Exposure: Yes Substance Use Type: does not use - Pertinent Findings Laboratory: CBC and BMP 08/29/17 05:59 - Physical Exam Respiratory Exam: Present: lungs clear Cardiovascular Exam: Present: regular rate and rhythm - Airway Assessment Mallampati Score: II TMD: 3 Fingerbreadths Neck Extension: good Overall Assessment: may be difficult intubation - ASA ASA Score: 2 - Plan Regional/Trunk Block: Spinal - Discussion Discussion: Discussed risks/options/alternatives of anesthesia and questions answered. Patient consents. Nursing pain assessment noted. Present for Discussion: spouse, parent Attestation Statement: Prior to the delivery of any anesthetic medication, I examined the patient, developed the plan, obtained the patient's consent and discussed the risk and benefits of the procedure with the patient/guardian. - Additional Information Seen by Anesthesia: Yes
[2017-08-29] MEDS ORDERED: HYDROCORTISONE 2.5% CREAM 30gm RECTALLY PRN (08:25)
[2017-08-29] MEDS ORDERED: ACETAMINOPHEN 500 MG TABLET PO PRN (08:25)
[2017-08-29] MEDS ORDERED: CALCIUM CARBONATE Chewable 500mg TABLET PO PRN (08:25)
[2017-08-29] MEDS ORDERED: SIMETHICONE 80 MG CHEWABLE TABLET PO PRN (08:25)
[2017-08-29] MEDS ORDERED: OXYTOCIN DRIP 30 UNIT/500 ML ML IV SCH (08:30)
--- NOTE | 2017-08-29 08:31 | Operative Note ---
Operative Note - Date of Operation Date of Operation: 08/29/17 - General : 3 Para: 2 Estimated or Known Gestational Age (weeks): 39 Estimated or Known Gestational Age (days): 0 - Preoperative Diagnosis Previous Section, Desires sterilization - Postoperative Diagnosis same as preoperative - Procedure Repeat, Low-transverse , Tubal Ligation (modified Wilian) - Surgeon Surgeon: Patricia Vizcaino MD - Flexo Folder Gluer Operator OB Flexo Folder Gluer Operator: Deacon Davidson SurgNba Assist - Anesthesia Anesthesia Provider: Brayden Allison CRNA Anesthesia Type: Spinal - Complications Complications: None - Estimated Blood Loss Estimated Blood Loss:: 800 - Findings Findings: viable male, clear fluids, normal uterus, normal adenexa, OP - APGARS : 8,9 - [place] Weight [place] Weight (grams): 3078 - Name Name: Dread - Description of Procedure Description of Procedure: The patient was taken to the operating room where anesthesia was obtained . She was placed in the dorsal supine position with a leftward tilt. A Seay catheter was placed . She was prepared and draped in the normal sterile fashion. A Pfannenstiel incision was made through her previous incision and carried down to the fascia. The fascia was incised in the midline with the scalpel and then extended laterally with the Nunez scissors. The fascia was elevated, and the underlying rectus muscles were dissected off. The peritoneum was entered sharply with Metzenbaums. This was extended superiorly and inferiorly with good visualization of the bladder. There was a small amount of omental adhesions on the anterior uterus that were taken down sharply. The bladder blade was inserted. The bladder was low enough on the uterus that a bladder flap was not created. The lower uterine segment was incised in a transverse fashion [id number] with the scalpel and bluntly extended. The membranes were ruptured. The infant s head was delivered atraumatically. The nose and mouth were suctioned. The cord was clamped and cut. The was handed to Dr. Allan who was asked to attend the delivery due to maternal obesity. The placenta delivered spontaneously. The uterus was exteriorized and cleared of all clots and debris. The uterus was closed with running, locked 0-monocryl. The left half of the incision was imbricated for hemostasis. Hemostasis was obtained on the serosal edges with cautery. A Fallopian tube was identified and carried out to the fimbriae. An avascular segment was grasped with a [place]. The segment was ligated with chromic. Each end of the segment was ligated with silk. The tube segment was excised, and good hemostasis was noted. The procedure was repeated on the other tube. The uterus was returned to the abdomen. The gutters were cleared of all clots and debris. The uterine incision was inspected one final time and still noted to be hemostatic. The peritoneum was closed with running 2-0 vicryl. Hemostasis was obtained in the rectus muscles with the cautery. The fascia was closed with running 0-vicryl. Hemostasis was obtained in the subcutaneous tissue with the cautery. The deep tissue was closed with running 2-0 chromic. The skin was closed with 4-0 vicryl in a subcuticular manner. A Prevena wound vac was placed due to her BMI. Sponge, sharp, and instrument counts were correct. The patient tolerated the procedure well and was taken to the recovery room in good condition.
[2017-08-29] MEDS: D5LR 1,000 ML IV SCH (08:52)
[2017-08-29] MEDS ORDERED: DOCUSATE CALCIUM 240 MG CAPSULE PO SCH (09:00)
[2017-08-29] MEDS: DiphenhydrAMINE 25 MG CAPSULE PO PRN ×2 (09:38→22:29)
[2017-08-29] MEDS: HYDROCODONE/APAP 5mg/325mg TABLET PO PRN ×2 (10:24→16:25)
[2017-08-29] MEDS: IBUPROFEN 800 MG TABLET PO PRN ×2 (10:25→22:30)
[2017-08-29] MEDS: SIMETHICONE 80 MG CHEWABLE TABLET PO SCH ×3 (11:24→22:30)
[2017-08-29] MEDS ORDERED: LR 300 ML IV ONE (14:07)
[2017-08-29] MEDS ORDERED: LR 300 ML IV SCH (14:15)
--- NOTE | 2017-08-29 14:38 | Anesthesia Postoperative Note ---
- Date and Time Date: 08/29/17 Time: 14:38 - Status Patient Participated in Evaluation: Patient Participated in Person Vital Signs: Temperature 97.9 F 08/29/17 12:30 Pulse Rate 77 08/29/17 12:30 Respiratory Rate 18 08/29/17 12:30 Blood Pressure 103/69 08/29/17 12:30 Pulse Oximetry 99 08/29/17 12:30 Respiratory Function: Airway Patent Cardiovascular Function: Regular Pulse Mental Status: Alert and Oriented Pain Intensity: 0 Hydration: Taking PO Fluids Complications During Recover: None Apparent - Follow-Up Instructions Instructions: Per Surgeon
--- NOTE | 2017-08-29 16:46 | OB/GYN Progress Note ---
OB-PP Progress Note - General PPD0 - Subjective Date: 08/29/17 Lochia: Minimal Pain: controlled Voiding: clemons still in place - Objective Vital Signs: Last Vital Signs Temp 97.9 F 08/29/17 12:30 Pulse 77 08/29/17 12:30 Resp 18 08/29/17 12:30 BP 103/69 08/29/17 12:30 Pulse Ox 99 08/29/17 12:30 Urine Output: adequate General: alert and oriented Laboratory: Laboratory Results - last 24 hr 08/29/17 08/29/17 08/29/17 05:59 05:59 14:46 WBC 17.7 H 17.8 H RBC 3.96 L 3.42 L Hgb 11.9 L 10.3 L D Hct 36.7 31.6 L D MCV 92.7 92.4 MCH 30.1 30.1 MCHC 32.4 32.6 RDW Std Deviation 49.9 49.2 Plt Count 233 201 MPV 10.6 10.6 Immature Gran % (Auto) Not performed Neut % (Auto) Not performed Lymph % (Auto) Not performed [place] % (Auto) Not performed Eos % (Auto) Not performed Baso % (Auto) Not performed Neut # (Auto) Not performed Lymph # (Auto) Not performed [place] # (Auto) Not performed Eos # (Auto) Not performed Baso # (Auto) Not performed Abs Immat Gran (auto) Not performed Neutrophils % (Manual) 78.0 H Band Neutrophils % 1.0 Lymphocytes % (Manual) 17.0 L Monocytes % (Manual) 4.0 Neutrophils # (Manual) 13.8 H Band Neutrophils # 0.2 Lymphocytes # (Manual) 3.0 Monocytes # (Manual) 0.7 RBC Morph Comment Normal Blood Type A Positive Antibody Screen Negative - Assessment Assessment: Repeat C/S - Plan Plan: routine care
[2017-08-30] MEDS: D5LR 1,000 ML IV SCH (02:19)
[2017-08-30] MEDS: SIMETHICONE 80 MG CHEWABLE TABLET PO SCH (02:20)
[2017-08-30] MEDS ORDERED: ACETAMINOPHEN 500 MG TABLET PO PRN (02:24)
[2017-08-30] MEDS ORDERED: HYDROCODONE/APAP 5mg/325mg TABLET PO PRN (02:24)
[2017-08-30] MEDS ORDERED: SALINE FLUSH 10ml SYRINGE IV PRN (02:24)
[2017-08-30] MEDS ORDERED: DiphenhydrAMINE 25 MG CAPSULE PO PRN (02:24)
[2017-08-30] MEDS ORDERED: HYDROCORTISONE 2.5% CREAM 30gm RECTALLY PRN (02:24)
[2017-08-30] MEDS ORDERED: IBUPROFEN 800 MG TABLET PO PRN (02:24)
[2017-08-30] MEDS ORDERED: CALCIUM CARBONATE Chewable 500mg TABLET PO PRN (02:24)
[2017-08-30] MEDS ORDERED: SIMETHICONE 80 MG CHEWABLE TABLET PO PRN (02:24)
[2017-08-30 07:33] VITALS: RESP 18
[2017-08-30] MEDS ORDERED: DOCUSATE CALCIUM 240 MG CAPSULE PO SCH (09:00)
[2017-08-30] MEDS ORDERED: SIMETHICONE 80 MG CHEWABLE TABLET PO SCH (09:30)
--- NOTE | 2017-08-30 09:39 | OB/GYN Progress Note ---
OB-PP Progress Note - General PPD1 Maternal Group B Strep: Negative Maternal blood type: A+ Maternal Rubella Status: Immune - Subjective Date: 08/30/17 Lochia: Minimal Pain: controlled Voiding: voiding Subjective Comments: Patient is doing well and asking to go home today. - Objective Vital Signs: Last Vital Signs Temp 98.3 F 08/30/17 07:15 Pulse 76 08/30/17 07:15 Resp 18 08/30/17 07:15 BP 123/67 08/30/17 07:15 Pulse Ox 97 08/30/17 07:15 General: alert and oriented Abdomen: fundus firm, non-tender, soft, non-distended Incision: other (Wound vac in place.) Extremities: non-tender Laboratory: Laboratory Results - last 24 hr 08/29/17 14:46 WBC 17.8 H RBC 3.42 L Hgb 10.3 L D Hct 31.6 L D MCV 92.4 MCH 30.1 MCHC 32.6 RDW Std Deviation 49.2 Plt Count 201 MPV 10.6 - Assessment Assessment: Repeat C/S, Anemia - Plan Plan: routine care, iron, discharge home (Since she's doing so well, we'll let her go home this evening.), continue PNV
[2017-08-30] MEDS ORDERED: IRON POLYSACCHARIDE COMPLEX 150 MG CAPSULE PO SCH (09:45)
[2017-08-30 11:29] VITALS: O2SAT 99
[2017-08-30 16:12] VITALS: BP 120/65; PULSE 74; TEMP 97.8
== END 2017-08-30 17:22 | disposition home or self-care (01) | DRG 765 ==
LOC: MC 08-29 05:23
PROVIDERS: ADMIT Obstetrics & Gynecology; ATTEND Obstetrics & Gynecology